=== PATIENT | male | born 1995 | race African-American/Black ===

== ENCOUNTER 2017-10-16 22:23 | Emergency (ER) | END 2017-10-17 03:18 | disposition home or self-care (01) ==

== ENCOUNTER 2017-10-17 23:23 | Emergency (ER) | END 2017-10-18 04:28 | disposition home or self-care (01) ==

== ENCOUNTER 2018-05-16 02:56 | Inpatient (IN) | END 2018-05-19 13:59 | disposition home or self-care (01) | DRG 812 ==

== ENCOUNTER 2018-06-30 05:28 | Emergency (ER) | END 2018-06-30 07:39 | disposition home or self-care (01) ==

== ENCOUNTER 2018-06-30 10:30 | Inpatient (IN) | payer OTHER ==
[~2018-06-30] VITALS: Ht 177.8 cm; Wt 68.5 kg
[~2018-06-30 10:30] MED LIST: DOCU-144 PO; FOLI-49 PO; HYDR-3601 PO; HYDR500C14 PO; OXYC-279 PO; Work Note
[2018-06-30] MEDS ORDERED: HYDROmorphONE 1 MG/ML SYG IV STA (11:16)
[2018-06-30] MEDS ORDERED: SOD CHLORIDE 0.9% 1,000 ML IV STA (11:16)
[2018-06-30] MEDS ORDERED: HYDR500C3 PO (11:51)
[2018-06-30] MEDS ORDERED: FOLI-49 PO (11:51)
--- NOTE | 2018-06-30 11:55 | ERD ---
ER Documentation Chief Complaint Chief Complaint pt bib self with c/o "sickle cell crisis" just discharged 4 hrs ago HPI 23-year-old male who was just seen earlier today for a sickle cell pain crisis presents to the emergency department soon after leaving with ongoing pain. His history has not changed at all from his initial evaluation. He reports no fevers. Reports diffuse pain across his body. He reports no specific chest pain or shortness of breath, no fevers or chills. No other symptoms. Despite using the Percocet as an outpatient, he continued to have pain return to the emergency department. ROS All systems reviewed and are negative except as per history of present illness. Medications Home Meds Reported Medications Hydroxyurea* (Hydroxyurea*) 500 Mg Capsule, 1500 MG PO BID, CAP 06/30/18 Folic Acid* (Folic Acid*) 1 Mg Tablet, 1 MG PO DAILY, TAB 06/30/18 Discontinued Scripts Oxycodone HCl/Acetaminophen (Percocet 5-325 mg Tablet) 1 Each Tablet, 1 EACH PO TID for pain, #10 TAB Prov:VILMA CURRY 06/30/18 [Work Note] No Conflict Check [facility] from[facility] is to certify that 05/16/2018 to 05/19/2018. The patient can return back to work on 05/22/2018 with no restrictions. Prov:CAROLINE AKHTAR NP 05/19/18 Docusate Sodium* (Colace*) 100 Mg Capsule, 100 MG PO BID, #20 CAP Prov:CAROLINE AKHTAR NP 05/19/18 Folic Acid* (Folic Acid*) 1 Mg Tablet, 1 MG PO DAILY, #30 TAB Prov:CAROLINE AKHTAR NP 05/19/18 Hydroxyurea* (Hydrea*) 500 Mg Capsule, 1500 MG PO DAILY, #30 CAP Patient already has supplies. Prov:CAROLINE AKHTAR NP 05/19/18 Hydrocodone Bit-Acetaminophen (Hydrocodone Bit-APAP) 5-325MG Tablet, 1 TAB PO Q6H PRN for MODERATE PAIN LEVEL 4-6, #20 TAB Prov:CAROLINE AKHTAR NP 05/19/18 Allergies Allergies: Coded Allergies: No Known Allergy (Unverified , 06/30/18) PMhx/Soc History of Surgery: No Anesthesia Reaction: No Hx Neurological Disorder: No Hx Cardiac Disorders: No Hx Miscellaneous Medical Probl: Yes (SICKLE CELL ANEMIA ) Hx Alcohol Use: No Hx Substance Use: No Hx Tobacco Use: Yes (CANNABIS) Smoking Status: Current every day smoker FmHx Noncontributory for chief complaint Physical Exam Vitals Vital Signs Date Temp Pulse Resp B/P (MAP) Pulse Ox O2 O2 Flow FiO2 Time Delivery Rate 06/30/18 98.9 75 18 125/74 99 10:32 (91) Physical Exam GENERAL: The patient is well developed and appropriate for usual state of health in no apparent distress HEENT: Pupils equal, round, and reactive to light. EOMI. There is no scleral icterus. NECK: C-spine is soft and supple, there is no meningismus. There is no cervical lymphadenopathy. LUNGS: Clear to auscultation bilaterally. There are no rales, wheezes or rhonchi. HEART: Regular rate and rhythm, no murmurs, clicks, rubs or gallops. ABDOMEN: Soft, non-tender, non-distended. There are bowel sounds in all four quadrants. No rebound or guarding. EXTREMITIES: There is no peripheral cyanosis or edema. No focal swelling or erythema. NEURO: The patient moves all four extremities with 5/5 strength. Cranial nerves II - XII are intact. Normal gait. Alert and oriented SKIN: There is no apparent rash or petechiae. HEME/LYMPHATIC: There is no evidence of excessive bruising or lymphedema. PSYCHIATRIC: The patient does not appear anxious or depressed. Results 24 hrs Current Medications Medications Dose Sig/Pablo Start Time Status Last (Trade) Ordered Route PRN Stop Time Admin Dose Reason Admin Sodium 1,000 ml @ Q1H STAT 06/30/18 06/30/18 Chloride 1,000 mls/hr IV 11:16 11:29 06/30/18 12:15 1 mg ONCE STAT 06/30/18 DC 06/30/18 Hydromorphone IV 11:16 11:28 HCl 06/30/18 (Dilaudid) 11:17 Procedures/MDM Patient was taken to a room, seen and examined. Pain medication and fluids was reinitiated. Medical decision makin23 year old male with existing sickle cell disease presents the emergency department in ongoing pain crisis. Patient has no in dications of sepsis or dehydration but does have ongoing pain that despite outpatient treatment and initial attempts for outpatient discharge earlier in the day have been unsuccessful. He will therefore require admission to the hospital for further pain control and fluids. Departure Diagnosis: Primary Impression: Sickle cell pain crisis Condition: Marianne CURRYVILMA Jun 30, 2018 11:55
[2018-06-30] MEDS ORDERED: HYDROmorphONE 2 MG/ML SYG IV STA (12:54)
[2018-06-30 13:50] VITALS: BP 133/71; PULSE 104; RESP 18
--- NOTE | 2018-06-30 14:00 | NUR ---
Admitted patient from ER, alert and oriented x 4, able to answer admission questions. Skin assessed with another RN, no skin issues noted, skin noted to be intact, no wounds noted. Safety precautions initiated. Informed of the hourly rounding and oriented to the use of call light and telephone. Will continue to monitor. Addendum: 06/30/18 at 1804 by SHERRY POSADAS RN Patient refused pictures to be taken on his buttocks and heels. Explained to the patient the importance and the reason of the pictures but still patient refused.
[2018-06-30 14:11] VITALS: Ht 177.8 cm; Wt 68.5 kg
[2018-06-30] MEDS ORDERED: KETOROLAC 30 MG INJ IV STA (14:25)
[2018-06-30] MEDS ORDERED: ONDANSETRON 4 MG INJ IV PRN (14:30)
[2018-06-30] MEDS ORDERED: NACL 0.9% 3 ML SYG IV SCH (14:30)
--- NOTE | 2018-06-30 14:37 | HP ---
Date/Time of Note Date/Time of Note DATE: 06/30/18 TIME: 14:26 Assessment/Plan VTE Prophylaxis Pharmacological prophylaxis: LMWH Lines/Catheters IV [facility]from [facility] Saline Lock Urinary Cath still in place: No Assessment/Plan Assessment/Plan 23 yo man with sickle cell disease presents with crisis. #Sickle cell crisis - Diffuse bone pain and leukocytosis, dehydration. - Likely precipitated by dehydration after heavy drinking followed by brief gastroenteritis. - Pain control: Patient prefers toradol. Will give dose now. - Also will do norco and IV dilaudid as needed. - IV fluids @125 - Complete workup with CXR DVT: lovenox GI: none HPI/ROS Admit Date/Time Admit Date/Time Jun 30, 2018 at 11:56 Hx of Present Illness Mr. Dalton is a pleasant 23 yo man with sickle cell disease who presents with nonspecific whole body pain. He was in his usual state of health until last Tuesday when he was out with friends and drank heavily. The next morning he had a headache, nausea, vomiting, and watery diarrhea. For the next two days he continued having poor PO intake and diarrhea. By the diarrhea had resolved and he was able to tolerate regular diet. night he suddenly developed aching bone pain spreading around his body, mostly R knee, R shoulder and arm, chest and back; typical of past sickle cell crises. He took [place] as prescribed with no relief. So he presented to the ED early Tuesday morning. Last hospitalization was 05/16-05/19 also for sickle cell crisis. In the ED he was afebrile, vital signs stable. Hgb 8.2 which is baseline for him. WBC 18.0. ROS Denies fatigue, fever, chills, night sweats, headache, vision changes, sore throat, cough, dyspnea, chest pressure or palpitations, recent diarrhea or constipation, dysuria, hematuria, urinary frequency. PMH/Family/Social Past Medical History Sickle cell disease Coded Allergies: No Known Allergy (Unverified , 06/30/18) Past Surgical History Denies Family History Significant Family History: no pertinent family hx Social History Alcohol Use: occasionally Smoking Status: Never smoker Drug Use: marijuana (Last used yesterday) Exam/Review of Systems Vital Signs Vitals Vital Signs Date Temp Pulse Resp B/P (MAP) Pulse Ox O2 O2 Flow FiO2 Time Delivery Rate 06/30/18 88 18 109/59 100 Nasal 2.0 13:05 (76) Cannula 06/30/18 98.9 10:32 Exam Exam Gen: Fatigued appearing well developed young man in no acute distress. Eyes: PERRL, no icterus HEENT: Very dry mucous membranes. Clear oropharynx Neck: Nontender no lymphadenopathy Card: Regular rate and rhythm, no murmurs Chest: Tenderness to palpation anterior chest. Pulm: Clear to auscultation bilaterally. Abd: Soft, nontender, nondistended. Ext: Good peripheral pulses. Nontender R shoulder, elbow, knee with full ROM. KEVIN NOLASCO MD Jun 30, 2018 14:37
[2018-06-30] MEDS: SOD CHLORIDE 0.45% 1,000 ML IV SCH ×2 (14:52→23:28)
[2018-06-30] MEDS: SENNA TAB PO SCH ×2 (15:05→20:44)
[2018-06-30] MEDS: HYDROmorphONE 1 MG/ML SYG IV PRN ×2 (16:41→20:46)
--- NOTE | 2018-06-30 17:38 | NUR ---
NURSE NOTES: Patient alert and oriented x 4, able to make needs known remained stable throughout the shift with no acute changes noted. no SOB or distress. IV patent and intact. assessed and reassessed for pain. medicated with pain medications as ordered. Safety precautions observed, hourly rounding done, bed alarm and bed brakes on for safety. Call light and telephone within reach at all times. Will continue to monitor. Will endorse accordingly to next shift for continuity of care
[2018-06-30] MEDS: HYDROCODONE/APAP (5/325) TAB PO PRN (18:47)
[2018-06-30 20:16] VITALS: BP 106/59; PULSE 89; RESP 18
[2018-06-30] MEDS: HYDROXYUREA 500 MG CAP PO SCH (22:30)
--- NOTE | 2018-06-30 22:30 | NUR ---
Verified dose of Hydrea with RN Jerica.Confirmed with patient that he's taking Hydrea at home.Pt is aware of possible side effects of medication.No questions about the medication at this time.Reviewed with RN precautions while patient is on chemo.
--- NOTE | 2018-06-30 23:30 | NUR ---
pt noted moaning in bed,complaining of severe pain, aching, gen body pain. pain medications dilaudid and norco due in another hour. notified Dr Winter w/ order to give dilaudid 0.5 mg iv once . noted and carried out
[2018-06-30] MEDS ORDERED: HYDROmorphONE 0.5 MG/0.5 ML SYG IV ONE (23:48)
[2018-07-01 02:00] VITALS: BP 110/57; PULSE 102; RESP 18
[2018-07-01] MEDS: HYDROmorphONE 1 MG/ML SYG IV PRN ×2 (02:16→06:12)
[2018-07-01] MEDS: HYDROCODONE/APAP (5/325) TAB PO PRN (04:57)
--- NOTE | 2018-07-01 06:47 | NUR ---
received critical result hgb 6.7 , notified Dr Winter w/ order to give 1'u' PRBC and to repeat cbc after 1 hour of giving 1'u' PRBC. education material regarding blood transfusion given to pt. consent to blood transfusion signed by pt. will endorse to dayshift nurse
[2018-07-01 07:30] VITALS: BP 104/57; PULSE 94; RESP 16
[2018-07-01] MEDS: SOD CHLORIDE 0.45% 1,000 ML IV SCH ×3 (07:48→19:40)
[2018-07-01] MEDS ORDERED: SOD CHLORIDE 0.9% 250 ML IV* ONE (08:34)
[2018-07-01] MEDS: ENOXAPARIN 40 MG/0.4 ML SYG SC SCH (09:00)
[2018-07-01] MEDS: SENNA TAB PO SCH ×2 (09:26→20:27)
[2018-07-01] MEDS: FOLIC ACID 1 MG TAB PO SCH (09:26)
[2018-07-01] MEDS: HYDROXYUREA 500 MG CAP PO SCH ×2 (09:27→20:29)
--- NOTE | 2018-07-01 09:30 | NUR ---
patient's oxigen saturation was low with room air.87%.oxigen 2 l via nasal canula 94%.notified and new orders received for oxigen orders via nasal canula.
[2018-07-01] MEDS: HYDROmorphONE 2 MG/ML SYG IV PRN ×4 (09:33→22:12)
[2018-07-01] MEDS: DIPHENHYDRAMINE 25 MG CAP PO PRN ×2 (10:29→17:53)
--- NOTE | 2018-07-01 10:30 | NUR ---
patient c/o itching all over the body .notified and new orders received for benadryl and will carry out the orders
--- NOTE | 2018-07-01 10:53 | NUR ---
waiting for blood bank to re draw the blood due to different v number.called admitting and blood bank regarding this.charge nurse also aware.will transfuse as soon as blood ready.
--- NOTE | 2018-07-01 11:57 | NUR ---
after the benadry patient said ''no more itching .feel better''.md increase the pain meds also gave the dose as ordered.dialudid iv 2 mg .
--- NOTE | 2018-07-01 12:46 | NUR ---
called blood bank and talk with angeliac regarding the packed cells.she said;''it is not ready ,he has antibody,take time to process,will call you when blood is ready''
[2018-07-01 14:01] VITALS: BP 107/67; PULSE 88; RESP 16
[2018-07-01] MEDS: HYDROmorphONE 4 MG TAB PO PRN ×2 (15:25→19:40)
--- NOTE | 2018-07-01 15:44 | NUR ---
called blood bank and talk with Natasha regarding the blood.she said''it is not ready yet,its take little more time''so unable to start the first unit still.waiting for blood bank
--- NOTE | 2018-07-01 16:15 | PN ---
Date/Time of Note Date/Time of Note DATE: 07/01/18 TIME: 16:09 Assessment/Plan VTE Prophylaxis Risk score (from Nsg)>0 risk: 1 SCD applied (from Ns): No SCD contraindicated: other (no) Pharmacological prophylaxis: LMWH Lines/Catheters IV Catheter Type (from Nrs): Peripheral IV Urinary Cath still in place: No Assessment/Plan Assessment/Plan 23 yo man with sickle cell disease presents with crisis. #Sickle cell crisis - Diffuse bone pain and leukocytosis, dehydration. - Likely precipitated by dehydration after heavy drinking followed by brief gastroenteritis. - Pain control: PO and IV dilaudid as needed. Benadryl for itching. - IV fluids @125 - CXR with scant infiltrates which may represent atelectasis. However he also had hypoxia also requiring nasal cannula. Remaining vigilant for acute chest syndrome. - Also will get R knee XR, has persistent pain and unable to bear weight on it. #Anemia - Will transfuse 2 units pRBCs. DVT: lovenox GI: none Result Diagram: 07/01/18 0530 07/01/18 0530 Subjective 24 Hr Interval Summary Free Text/Dictation No acute overnight events. Continues to have migrating bony pain. Today feels R knee pain, mild L neck anterior pain. Slightly hypoxic this morning, required nasal cannula. Unable to bear weight on R knee. Also requires blood transfusion. Discussed with patient and he is agreeable. Crossmatch is taking awhile because he has antibodies. Exam/Review of Systems Vital Signs Vitals Vital Signs Date Temp Pulse Resp B/P (MAP) Pulse Ox O2 O2 Flow FiO2 Time Delivery Rate 07/01/18 98.3 88 16 107/67 95 Room Air 14:01 (80) 06/30/18 2.0 13:05 Intake and Output 06/30/18 06/30/18 07/01/18 1515:00 23:00 07:00 IntakeIntake Total 120 ml 615 ml 1805 ml OutputOutput Total 350 ml 1000 ml 700 ml BalanceBalance -230 ml -385 ml 1105 ml Exam Gen: Fatigued appearing well developed young man in no acute distress. Eyes: PERRL, no icterus HEENT: Very dry mucous membranes. Clear oropharynx Neck: Nontender no lymphadenopathy Card: Regular rate and rhythm, no murmurs Chest: Tenderness to palpation anterior chest. Pulm: Clear to auscultation bilaterally. Abd: Soft, nontender, nondistended. Ext: Good peripheral pulses. Nontender R shoulder, elbow, knee with full ROM. Medications Medications Current Medications Sodium Chloride 1,000 ml @ 125 mls/hr Q8H IV Last administered on 07/01/18 07:48; Admin Dose 125 MLS/HR; Start 06/30/18 at 14:21 IV Flush (NS 3 ml) 3 ml PER PROTOCOL IV ; Start 06/30/18 at 14:30 Ondansetron HCl (Zofran Inj) 4 mg Q6H PRN IV NAUSEA AND/OR VOMITING; Start 06/30/18 at 14:30 Enoxaparin Sodium (Lovenox) 40 mg DAILY SC ; Start 07/01/18 at 09:00 Senna (Senokot) 1 tab BID PO Last administered on 07/01/18 09:26; Admin Dose 1 TAB; Start 06/30/18 at 14:30 Folic Acid (Folic Acid) 1 mg DAILY PO Last administered on 07/01/18 09:26; Admin Dose 1 MG; Start 07/01/18 at 09:00 Hydroxyurea (Hydrea) 1,500 mg BID PO Last administered on 07/01/18 09:27; Admin Dose 1,500 MG; Start 06/30/18 at 21:00 Hydromorphone HCl (Dilaudid) 2 mg Q2H PRN IV SEVERE PAIN LEVEL 7-10 Last administered on 07/01/18 13:23; Admin Dose 2 MG; Start 07/01/18 at 10:30 Hydromorphone HCl (Dilaudid) 4 mg Q4H PRN PO MODERATE PAIN LEVEL 4-6 Last administered on 07/01/18 15:25; Admin Dose 4 MG; Start 07/01/18 at 10:00 Diphenhydramine HCl (Benadryl) 25 mg Q6H PRN PO ITCHING Last administered on 07/01/18 10:29; Admin Dose 25 MG; Start 07/01/18 at 10:30 KEVIN NOLASCO MD Jul 01, 2018 16:15
--- NOTE | 2018-07-01 16:53 | NUR ---
started the first units of prbc at this time.patient's temperature 99.0 F at this time.notified and he said''it is ok to start the blood with this temperature ''no new orders received at this time.
--- NOTE | 2018-07-01 18:40 | NUR ---
all needs met.no acute events.gave pain medication as reqested.gave benadryl also as reqested.call light within reach.bed alarm on.he is still getting blood transfusion .will endorese to night nurse to give the 2 nd unit.
[2018-07-01 20:00] VITALS: BP 121/69; PULSE 91; RESP 18
--- NOTE | 2018-07-01 20:38 | NUR ---
Blood transfusion finished. No blood reaction noted. Pt denies chills or discomfort.
--- NOTE | 2018-07-01 22:02 | NUR ---
Pts current vitals: BP:114/64 Temp:100.0 F, O2 sat: 94%, HR: 99, RR: 18. Pt refusing cooling measures. Spoke with Dr. Winter regarding vitals, Doctor ordered a stat CBC and tylenol 650mg PO Q6 PRN. Will notify of CBC results Addendum: 07/01/18 at 2206 by ALCIDES SHEN RN Second unit of PRBCs has not been given d/t elevated temp. Dr. Winter ordered to be called with CBC results. Patient aware.
[2018-07-01] MEDS ORDERED: ACETAMINOPHEN 325 MG TAB PO PRN (22:30)
--- NOTE | 2018-07-01 23:56 | NUR ---
Patient's Hgb 8.0. Patient states his Hgb baseline is 8.0-10.0. Dr. Winter made aware. Per Dr. Winter made give second unit of PRBC. Temp. after Tylenol administration 99.0
[2018-07-02] VITALS (9 sets, daily range): BP systolic 101–129; BP diastolic 58–77; PULSE 76–103; RESP 16–18
[2018-07-02] MEDS: HYDROmorphONE 2 MG/ML SYG IV PRN ×6 (03:04→23:39)
[2018-07-02] MEDS: HYDROmorphONE 4 MG TAB PO PRN ×5 (05:16→22:07)
--- NOTE | 2018-07-02 05:30 | NUR ---
End of Shift RN Note: Second unit of PRBC finished at 0430. Vital signs one hour after transfusion remain at baseline with no signs of blood transfusion reaction. Pt states he is comfortable and shows no signs of acute distress. Pt administered pain medication multiple times through the night with pt verbalizing adequate relief. Spoke with key punch operator regarding CBC blood draw time, key punch operator agreed to have blood drawn around 0530 am. Hourly rounding provided. Will continue to monitor pt until then end of shift.
[2018-07-02] MEDS: SOD CHLORIDE 0.45% 1,000 ML IV SCH ×3 (05:56→22:54)
[2018-07-02] MEDS: SENNA TAB PO SCH ×2 (08:52→21:04)
[2018-07-02] MEDS: HYDROXYUREA 500 MG CAP PO SCH ×2 (08:52→21:10)
[2018-07-02] MEDS: FOLIC ACID 1 MG TAB PO SCH (08:52)
[2018-07-02] MEDS: ENOXAPARIN 40 MG/0.4 ML SYG SC SCH ×2 (08:56→13:56)
--- NOTE | 2018-07-02 10:00 | NUR ---
patient refused lovenox shot as ordered.explained to him how important to have this meds.he is worry about the side effects.notified regarding this and he also spoke with the patient regarding this .
--- NOTE | 2018-07-02 15:50 | PN ---
Date/Time of Note Date/Time of Note DATE: 07/02/18 TIME: 15:48 Assessment/Plan VTE Prophylaxis Risk score (from Ns)>0 risk: 0 SCD applied (from Ns): No SCD contraindicated: other (no) Pharmacological prophylaxis: LMWH Lines/Catheters IV Catheter Type (from Nrs): Peripheral IV Urinary Cath still in place: No Assessment/Plan Assessment/Plan 23 yo man with sickle cell disease presents with crisis. #Sickle cell crisis - Diffuse bone pain and leukocytosis, dehydration. - Likely precipitated by dehydration after heavy drinking followed by brief gastroenteritis. - Pain control: PO and IV dilaudid as needed. Benadryl for itching. - IV fluids @125 - CXR with scant infiltrates which may represent atelectasis. However he also had hypoxia also requiring nasal cannula. Remaining vigilant for acute chest syndrome. #Anemia - Transfused 2 units pRBCs. DVT: lovenox GI: none Result Diagram: 07/02/18 0712 07/02/18 0712 Results 24hrs Laboratory Tests Test 07/01/18 22:28 07/02/18 06:44 07/02/18 07:12 07/02/18 10:28 White Blood 17.8 H 15.2 H Count Red Blood Count 2.48 L 2.80 L Hemoglobin 8.0 L 8.8 L Hematocrit 22.3 #L 24.9 L Mean 89.9 88.9 Corpuscular Volume Mean 32.3 31.4 Corpuscular Hemoglobin Mean 35.9 35.3 Corpuscular Hemoglobin Conc ent Red Cell 20.1 H 19.9 H Distribution Width Platelet Count 545 H 514 H Mean Platelet 10.6 H 10.5 H Volume Immature 2.000 H 1.700 H Granulocytes % Neutrophils % 69.0 Segmented 65 Neutrophils % (Manual) Band 6 H Neutrophils % (Manual) Lymphocytes % 21.0 Lymphocytes % 21 (Manual) Reactive 2 H Lymphocytes % (Manual) Monocytes % 7.1 Monocytes % 6 (Manual) Eosinophils % 0.7 Basophils % 0.5 Nucleated Red 21 H 13.5 H Blood Cells % Immature 0.360 H 0.260 H Granulocytes # Neutrophils # 10.5 H Neutrophils # 11.7 H (Manual) Band 1.0 H Neutrophils # Lymphocytes 3.7 H (Manual) Lymphocytes # 3.2 H Reactive 0.3 H Lymphocytes # Monocytes # 1.1 H Monocytes # 1.0 H (Manual) Eosinophils # 0.1 Basophils # 0.1 Nucleated Red 2.1 H Blood Cells # Platelet INCREASED Estimate Giant Platelets 1 H Polychromasia 3+ Poikilocytosis 2+ Anisocytosis 2+ Microcytosis 1+ Macrocytosis 2+ Sickle Cells 2+ Lab Scanned BLOOD TRANSFUSI REFERENCE LAB Report ON Sodium Level 137 Potassium Level 3.6 Chloride Level 102 Carbon Dioxide 31 Level Anion Gap 4 L Blood Urea 2 L Nitrogen Creatinine 0.39 L Est Glomerular > 60 Filtrat Rate mL/min Glucose Level 92 Calcium Level 9.2 Phosphorus 3.9 Level Magnesium Level 1.7 Subjective 24 Hr Interval Summary Free Text/Dictation No acute overnight events. Patient reluctant to take lovenox but agreeable after I spoke to him. Able to stand briefly yesterday; still unable to walk due to knee pain. Exam/Review of Systems Vital Signs Vitals Vital Signs Date Temp Pulse Resp B/P (MAP) Pulse Ox O2 O2 Flow FiO2 Time Delivery Rate 07/02/18 98.7 80 17 129/74 96 Room Air 15:07 (92) 07/02/18 2.0 14:57 Intake and Output 07/01/18 07/01/18 07/02/18 1515:00 23:00 07:00 IntakeIntake Total 870 ml 1450 ml 875 ml OutputOutput Total 400 ml 1700 ml 1300 ml BalanceBalance 470 ml -250 ml -425 ml Exam Gen: Fatigued appearing well developed young man in no acute distress. Eyes: PERRL, no icterus HEENT: Moist mucous membranes. Clear oropharynx Neck: Nontender no lymphadenopathy Card: Regular rate and rhythm, no murmurs Chest: Chest nontender Pulm: Clear to auscultation bilaterally. Abd: Soft, nontender, nondistended. Ext: Good peripheral pulses. Nontender R shoulder, elbow, knee with full ROM. Medications Medications Current Medications Sodium Chloride 1,000 ml @ 125 mls/hr Q8H IV Last administered on 07/02/18at 14:00; Admin Dose 125 MLS/HR; Start 06/30/18 at 14:21 IV Flush (NS 3 ml) 3 ml PER PROTOCOL IV ; Start 06/30/18 at 14:30 Ondansetron HCl (Zofran Inj) 4 mg Q6H PRN IV NAUSEA AND/OR VOMITING; Start 06/30/18 at 14:30 Enoxaparin Sodium (Lovenox) 40 mg DAILY SC Last administered on 07/02/18 13:56; Admin Dose 40 MG; Start 07/01/18 at 09:00 Senna (Senokot) 1 tab BID PO Last administered on 07/02/18 08:52; Admin Dose 1 TAB; Start 06/30/18 at 14:30 Folic Acid (Folic Acid) 1 mg DAILY PO Last administered on 07/02/18 08:52; Admin Dose 1 MG; Start 07/01/18 at 09:00 Hydroxyurea (Hydrea) 1,500 mg BID PO Last administered on 07/02/18 08:52; Admin Dose 1,500 MG; Start 06/30/18 at 21:00 Hydromorphone HCl (Dilaudid) 2 mg Q2H PRN IV SEVERE PAIN LEVEL 7-10 Last administered on 07/02/18 15:36; Admin Dose 2 MG; Start 07/01/18 at 10:30 Hydromorphone HCl (Dilaudid) 4 mg Q4H PRN PO MODERATE PAIN LEVEL 4-6 Last administered on 07/02/18 13:53; Admin Dose 4 MG; Start 07/01/18 at 10:00 Diphenhydramine HCl (Benadryl) 25 mg Q6H PRN PO ITCHING Last administered on 07/01/18 17:53; Admin Dose 25 MG; Start 07/01/18 at 10:30 Acetaminophen (Tylenol Tab) 650 mg Q6H PRN PO MILD PAIN(1-3)OR ELEVATED TEMP Last administered on 07/01/18 22:13; Admin Dose 650 MG; Start 07/01/18 at 22:30 KEVIN NOLASCO MD Jul 02, 2018 15:50
--- NOTE | 2018-07-02 18:45 | NUR ---
all needs met.no acute events.gave pain medication and benadryl as reqested.call light within reach.bed alarm on.he is resting comfortably in bed.
[2018-07-02] MEDS: DIPHENHYDRAMINE 25 MG CAP PO PRN (19:11)
[2018-07-03 01:39] VITALS: BP 115/70; PULSE 88; RESP 18
[2018-07-03] MEDS: HYDROmorphONE 4 MG TAB PO PRN ×5 (02:24→22:49)
[2018-07-03] MEDS: HYDROmorphONE 2 MG/ML SYG IV PRN ×4 (03:50→12:23)
[2018-07-03] MEDS: DIPHENHYDRAMINE 25 MG CAP PO PRN ×3 (05:29→23:59)
[2018-07-03] MEDS: SOD CHLORIDE 0.45% 1,000 ML IV SCH ×3 (06:21→16:00)
--- NOTE | 2018-07-03 06:44 | NUR ---
End of shift Report: Awake on bed watching TV. NO sob. No resp distress. Saturating at 96% RA. Frequently asked for pain med Dilaudid IV and PO given as ordered, well-jerson and effective. Also used heating pad fro right shoulder pain. No acute evens overnight. Needs attended and anticipated. Call light within reach. Will continue to monitor pt. Will endorse accordingly.
[2018-07-03 08:00] VITALS: BP 121/77; PULSE 87; RESP 18
[2018-07-03] MEDS: SENNA TAB PO SCH ×2 (08:31→21:04)
[2018-07-03] MEDS: FOLIC ACID 1 MG TAB PO SCH (08:31)
[2018-07-03] MEDS: ENOXAPARIN 40 MG/0.4 ML SYG SC SCH (08:33)
[2018-07-03] MEDS: HYDROXYUREA 500 MG CAP PO SCH ×2 (08:33→21:04)
[2018-07-03 14:00] VITALS: BP 126/74; PULSE 76; RESP 18
--- NOTE | 2018-07-03 15:31 | PN ---
Date/Time of Note Date/Time of Note DATE: 07/03/18 TIME: 15:28 Assessment/Plan VTE Prophylaxis Risk score (from Nsg)>0 risk: 0 SCD applied (from Ns): No SCD contraindicated: other Pharmacological prophylaxis: LMWH Lines/Catheters IV Catheter Type (from Nrsg): Peripheral IV Urinary Cath still in place: No Assessment/Plan Assessment/Plan S: O: VS - see below PE: Gen: Lying in bed, young man in no acute distress presently Eyes: PERRL, no icterus HEENT: Moist mucous membranes. Clear oropharynx Neck: Nontender no lymphadenopathy Card: Regular rate and rhythm, no murmurs Chest: Chest nontender Pulm: Clear to auscultation bilaterally. Abd: Soft, nontender, nondistended. Ext: Good peripheral pulses. Nontender R shoulder, elbow, knee with full ROM, no lower extremity edema bilaterally Assessment/Plan: 23 yo man with sickle cell disease presents with crisis. #Sickle cell crisis-slowly improving, presented initially with diffuse bone pain and leukocytosis, dehydration.- Likely precipitated by dehydration after heavy drinking followed by brief gastroenteritis. -Continue pain control: PO and IV dilaudid as needed (will cut back on the frequency). Benadryl for itching. - IV fluids @125 - CXR with scant infiltrates which may represent atelectasis. However he also had hypoxia also requiring nasal cannula. Remaining vigilant for acute chest syndrome. #Anemia -patient presented with hemoglobin of 6.7, received blood transfusion earlier this admission, now hemoglobin stable -Monitor for now DVT: lovenox GI: none Result Diagram: 07/03/18 0508 07/03/18 0508 Results 24hrs Laboratory Tests Test 07/03/18 05:08 White Blood Count 17.0 H Red Blood Count 2.63 L Hemoglobin 8.3 L Hematocrit 23.5 L Mean Corpuscular Volume 89.4 Mean Corpuscular Hemoglobin 31.6 Mean Corpuscular Hemoglobin Concent 35.3 Red Cell Distribution Width 20.2 H Platelet Count 573 H Mean Platelet Volume 10.4 Immature Granulocytes % 1.600 H Neutrophils % 66.8 Segmented Neutrophils % (Manual) 54 Band Neutrophils % (Manual) 7 H Lymphocytes % 20.2 Lymphocytes % (Manual) 26 Reactive Lymphocytes % (Manual) 6 H Monocytes % 10.3 Monocytes % (Manual) 6 Eosinophils % 0.7 Eosinophils % (Manual) 1 Basophils % 0.4 Nucleated Red Blood Cells % 29 H Immature Granulocytes # 0.270 H Neutrophils # 11.4 H Neutrophils # (Manual) 9.4 H Band Neutrophils # 1.1 H Lymphocytes (Manual) 4.4 H Lymphocytes # 3.4 H Reactive Lymphocytes # 1.0 H Monocytes # 1.8 H Monocytes # (Manual) 1.0 H Eosinophils # 0.1 Basophils # 0.1 Nucleated Red Blood Cells # 1.9 H Platelet Estimate INCREASED Giant Platelets 6 H Polychromasia 1+ Poikilocytosis 1+ Anisocytosis 2+ Macrocytosis 2+ Sickle Cells 2+ Sodium Level 137 Potassium Level 3.7 Chloride Level 99 Carbon Dioxide Level 32 H Anion Gap 6 Blood Urea Nitrogen 5 L Creatinine 0.46 L Est Glomerular Filtrat Rate mL/min > 60 Glucose Level 102 Calcium Level 9.2 Exam/Review of Systems Vital Signs Vitals Vital Signs Date Temp Pulse Resp B/P (MAP) Pulse Ox O2 O2 Flow FiO2 Time Delivery Rate 07/03/18 98.6 76 18 126/74 96 14:00 (91) 07/03/18 2.0 06:02 07/02/18 Room Air 15:07 Intake and Output 07/02/18 07/02/18 07/03/18 1515:00 23:00 07:00 IntakeIntake Total 1000 ml 2720 ml 1550 ml OutputOutput Total 2300 ml BalanceBalance 1000 ml 2720 ml -750 ml Medications Medications Current Medications Sodium Chloride 1,000 ml @ 125 mls/hr Q8H IV Last administered on 07/03/18at 07:28; Admin Dose 125 MLS/HR; Start 06/30/18 at 14:21 IV Flush (NS 3 ml) 3 ml PER PROTOCOL IV ; Start 06/30/18 at 14:30 Ondansetron HCl (Zofran Inj) 4 mg Q6H PRN IV NAUSEA AND/OR VOMITING; Start 06/30/18 at 14:30 Enoxaparin Sodium (Lovenox) 40 mg DAILY SC Last administered on 07/03/18at 08:33; Admin Dose 40 MG; Start 07/01/18 at 09:00 Senna (Senokot) 1 tab BID PO Last administered on 07/03/18at 08:31; Admin Dose 1 TAB; Start 06/30/18 at 14:30 Folic Acid (Folic Acid) 1 mg DAILY PO Last administered on 07/03/18 08:31; Admin Dose 1 MG; Start 07/01/18 at 09:00 Hydroxyurea (Hydrea) 1,500 mg BID PO Last administered on 07/03/18 08:33; Admin Dose 1,500 MG; Start 06/30/18 at 21:00 Hydromorphone HCl (Dilaudid) 2 mg Q2H PRN IV SEVERE PAIN LEVEL 7-10 Last administered on 07/03/18at 12:23; Admin Dose 2 MG; Start 07/01/18 at 10:30 Hydromorphone HCl (Dilaudid) 4 mg Q4H PRN PO MODERATE PAIN LEVEL 4-6 Last administered on 07/03/18at 14:46; Admin Dose 4 MG; Start 07/01/18 at 10:00 Diphenhydramine HCl (Benadryl) 25 mg Q6H PRN PO ITCHING Last administered on 07/03/18at 05:29; Admin Dose 25 MG; Start 07/01/18 at 10:30 Acetaminophen (Tylenol Tab) 650 mg Q6H PRN PO MILD PAIN(1-3)OR ELEVATED TEMP Last administered on 07/01/18at 22:13; Admin Dose 650 MG; Start 07/01/18 at 22:30 LACEY FELICIANO Jul 03, 2018 15:31
[2018-07-03] MEDS: HYDROmorphONE 1 MG/ML SYG IV PRN ×2 (16:36→21:04)
--- NOTE | 2018-07-03 18:49 | NUR ---
DX for sickle crises anemia, episodes of generalized body pain discomfort 6-7/10 pain scale given 1mg dilaudid iv push w/ break through pain dilaudid 4 mg po after 20-30 minutes pain scale 2-10. PPE used d/t chemo oral medications, good appetite noted fluids encouraged and VS within range
[2018-07-03 20:00] VITALS: BP 129/69; PULSE 112; RESP 18
[2018-07-03 21:00] VITALS: BP 125/65; PULSE 98; RESP 19
[2018-07-04] MEDS: HYDROmorphONE 1 MG/ML SYG IV PRN ×6 (01:18→21:39)
[2018-07-04] MEDS: SOD CHLORIDE 0.45% 1,000 ML IV SCH ×3 (01:21→21:52)
[2018-07-04 02:00] VITALS: BP 111/63; PULSE 81; RESP 18
[2018-07-04] MEDS: HYDROmorphONE 4 MG TAB PO PRN ×6 (02:57→23:47)
--- NOTE | 2018-07-04 03:38 | NUR ---
Pt been taking Dilaudid 4mg po and Dilaudid 1mg IV Q 4H, per pt pain med does not help him much and requesting to give other pain med or could change current pain med order. Dr. Mabry made aware and per MD no change for pain med for now and need to talk to his primary physician in am or if possible with Dr. Navarrete pain specialist . Will endorse to am shift nurse
--- NOTE | 2018-07-04 06:19 | NUR ---
End of shift Report: Awake watching TV. No sob. No resp distress. Medicated for pain, Dilaudid IV and PO given well-jerson and partially effective per pt. MD made aware. Needs attended and anticipated. No acute events overnight. Hourly rounding. Cont with current plan of care. Call light within reach. Will continue to monitor. Call light within reach.
[2018-07-04] MEDS: HYDROXYUREA 500 MG CAP PO SCH ×2 (08:01→21:48)
[2018-07-04] MEDS: FOLIC ACID 1 MG TAB PO SCH (08:01)
[2018-07-04] MEDS: SENNA TAB PO SCH ×2 (08:01→21:46)
[2018-07-04] MEDS: ENOXAPARIN 40 MG/0.4 ML SYG SC SCH (08:01)
[2018-07-04 08:26] VITALS: BP 109/65; PULSE 98; RESP 18
[2018-07-04] MEDS: DIPHENHYDRAMINE 25 MG CAP PO PRN ×2 (12:52→23:25)
--- NOTE | 2018-07-04 13:59 | NUR ---
NURSE NOTE: Dr. Coburn aware regarding H&H- 7.9/22.0. Received orders to transfuse 1 unit of PRBC today. Pt made aware and verbalized understanding.
[2018-07-04 15:01] VITALS: BP 121/76; PULSE 98; RESP 18
--- NOTE | 2018-07-04 15:09 | PN ---
Date/Time of Note Date/Time of Note DATE: 07/04/18 TIME: 15:07 Assessment/Plan VTE Prophylaxis Risk score (from Nsg)>0 risk: 0 SCD applied (from Ns): No SCD contraindicated: other Pharmacological prophylaxis: LMWH Lines/Catheters IV Catheter Type (from Nrsg): Peripheral IV Urinary Cath still in place: No Assessment/Plan Hospital Course S: No acute events overnight. Waiting to be seen by pain management team. O: VS - see below PE: Gen: Lying in bed, young man in no acute distress presently Eyes: PERRL, no icterus HEENT: Moist mucous membranes. Clear oropharynx Neck: Nontender no lymphadenopathy Card: Regular rate and rhythm, no murmurs Chest: Chest nontender Pulm: Clear to auscultation bilaterally. Abd: Soft, nontender, nondistended. Ext: Good peripheral pulses. Nontender R shoulder, elbow, knee with full ROM, no lower extremity edema bilaterally Assessment/Plan: 23 yo man with sickle cell disease presents with crisis. #Sickle cell crisis-slowly improving, presented initially with diffuse bone pain and leukocytosis, dehydration.- Likely precipitated by dehydration after heavy drinking followed by brief gastroenteritis. -Continue pain control: PO and IV dilaudid as needed, Benadryl for itching. - IV fluids - CXR with scant infiltrates which may represent atelectasis. However he also had hypoxia also requiring nasal cannula. Remaining vigilant for acute chest syndrome. -Because patient still complaining of some pain symptoms will get pain management consult as well #Anemia -patient presented with hemoglobin of 6.7, received blood transfusion earlier this admission, hemoglobin was stable for a couple of days, but today a little bit lower at 7.9 -Monitor for now, we will go ahead and order for 1 more unit PRBC transfusion today Result Diagram: 07/04/18 0624 07/04/18 0624 Results 24hrs Laboratory Tests Test 07/04/18 06:24 White Blood Count 15.9 H Red Blood Count 2.47 L Hemoglobin 7.9 L Hematocrit 22.0 L Mean Corpuscular Volume 89.1 Mean Corpuscular Hemoglobin 32.0 Mean Corpuscular Hemoglobin Concent 35.9 Red Cell Distribution Width 19.7 H Platelet Count 631 H Mean Platelet Volume 10.7 H Immature Granulocytes % 1.100 H Neutrophils % 69.0 Lymphocytes % 18.8 Monocytes % 9.7 Eosinophils % 1.0 Basophils % 0.4 Nucleated Red Blood Cells % 9.5 H Immature Granulocytes # 0.180 H Neutrophils # 11.0 H Lymphocytes # 3.0 H Monocytes # 1.5 H Eosinophils # 0.2 Basophils # 0.1 Nucleated Red Blood Cells # 1.5 H Sodium Level 136 Potassium Level 3.8 Chloride Level 100 Carbon Dioxide Level 28 Anion Gap 8 Blood Urea Nitrogen 6 L Creatinine 0.46 L Est Glomerular Filtrat Rate mL/min > 60 Glucose Level 84 Calcium Level 9.1 Phosphorus Level 3.7 Magnesium Level 1.7 Exam/Review of Systems Vital Signs Vitals Vital Signs Date Temp Pulse Resp B/P (MAP) Pulse Ox O2 O2 Flow FiO2 Time Delivery Rate 07/04/18 98.7 98 18 121/76 93 15:01 (91) 07/03/18 2.0 23:46 07/02/18 Room Air 15:07 Intake and Output 07/03/18 07/03/18 07/04/18 1515:00 23:00 07:00 IntakeIntake Total 600 ml 1750 ml 1415 ml OutputOutput Total 940 ml 750 ml 1200 ml BalanceBalance -340 ml 1000 ml 215 ml Medications Medications Current Medications Sodium Chloride 1,000 ml @ 125 mls/hr Q8H IV Last administered on 07/04/18 09:34; Admin Dose 125 MLS/HR; Start 06/30/18 at 14:21 IV Flush (NS 3 ml) 3 ml PER PROTOCOL IV ; Start 06/30/18 at 14:30 Ondansetron HCl (Zofran Inj) 4 mg Q6H PRN IV NAUSEA AND/OR VOMITING; Start 06/30/18 at 14:30 Enoxaparin Sodium (Lovenox) 40 mg DAILY SC Last administered on 07/04/18 08:01; Admin Dose 40 MG; Start 07/01/18 at 09:00 Senna (Senokot) 1 tab BID PO Last administered on 07/04/18 08:01; Admin Dose 1 TAB; Start 06/30/18 at 14:30 Folic Acid (Folic Acid) 1 mg DAILY PO Last administered on 07/04/18 08:01; Admin Dose 1 MG; Start 07/01/18 at 09:00 Hydroxyurea (Hydrea) 1,500 mg BID PO Last administered on 07/04/18 08:01; Admin Dose 1,500 MG; Start 06/30/18 at 21:00 Hydromorphone HCl (Dilaudid) 4 mg Q4H PRN PO MODERATE PAIN LEVEL 4-6 Last administered on 07/04/18 11:51; Admin Dose 4 MG; Start 07/01/18 at 10:00 Diphenhydramine HCl (Benadryl) 25 mg Q6H PRN PO ITCHING Last administered on 07/04/18 12:52; Admin Dose 25 MG; Start 07/01/18 at 10:30 Acetaminophen (Tylenol Tab) 650 mg Q6H PRN PO MILD PAIN(1-3)OR ELEVATED TEMP Last administered on 07/01/18at 22:13; Admin Dose 650 MG; Start 07/01/18 at 22:30 Hydromorphone HCl (Dilaudid) 1 mg Q4H PRN IV SEVERE PAIN LEVEL 7-10 Last administered on 07/04/18 13:41; Admin Dose 1 MG; Start 07/03/18 at 16:00 LACEY FELICIANO Jul 04, 2018 15:09
--- NOTE | 2018-07-04 17:47 | CONS ---
Date/Time of Note Date/Time of Note DATE: 07/04/18 TIME: 17:45 Assessment/Plan Assessment/Plan Assessment/Plan Sickle cell crisis Currently being treated with IV fluids, pain control medications and has required transfusions. He is improving at this time Anemia secondary to sickle cell Being transfused No evidence of focal infection Had a long discussion with patient will continue with his p.o. and IV pain control medications tonight tomorrow morning we will discontinue IV Dilaudid maintain p.o. for a short period of time. Patient agrees with regimen. Result Diagram: 07/04/18 0624 07/04/18 0624 Results 24hrs Laboratory Tests Test 07/04/18 06:24 White Blood Count 15.9 H Red Blood Count 2.47 L Hemoglobin 7.9 L Hematocrit 22.0 L Mean Corpuscular Volume 89.1 Mean Corpuscular Hemoglobin 32.0 Mean Corpuscular Hemoglobin Concent 35.9 Red Cell Distribution Width 19.7 H Platelet Count 631 H Mean Platelet Volume 10.7 H Immature Granulocytes % 1.100 H Neutrophils % 69.0 Lymphocytes % 18.8 Monocytes % 9.7 Eosinophils % 1.0 Basophils % 0.4 Nucleated Red Blood Cells % 9.5 H Immature Granulocytes # 0.180 H Neutrophils # 11.0 H Lymphocytes # 3.0 H Monocytes # 1.5 H Eosinophils # 0.2 Basophils # 0.1 Nucleated Red Blood Cells # 1.5 H Sodium Level 136 Potassium Level 3.8 Chloride Level 100 Carbon Dioxide Level 28 Anion Gap 8 Blood Urea Nitrogen 6 L Creatinine 0.46 L Est Glomerular Filtrat Rate mL/min > 60 Glucose Level 84 Calcium Level 9.1 Phosphorus Level 3.7 Magnesium Level 1.7 Consultation Date/Type/Reason Admit Date/Time Jun 30, 2018 at 11:56 Hx of Present Illness 23-year-old gentleman who is well-known to me from prior hospitalizations for sickle cell crisis. This episode began approximately 1 week prior to his presentation the patient states he became dehydrated was exposed to cold weather. He tried to treat himself as an outpatient was unsuccessful presented to the emergency room x1 given Percocet and discharged. The following day he needed to return for symptoms out of control. It is similar episodes as he has had in the past with pain in his bilateral pelvis bilateral shoulder however now with current treatment patient's pain is primarily in his left shoulder all other areas have resolved. Patient is compliant with his treatment legitimate with his history. Pain is described as 10/10 when he first presented now he is 3/10. He is receiving a combination of p.o. and IV Dilaudid but he admits that he can probably tolerate decreasing doses of IV pain control medications at this time . Denies any further complication of nausea vomiting dizziness diplopia disorientation diarrhea or constipation. Constitutional: No no complaints, No improved, No chills, No diaphoresis, No disoriented, No febrile, No poor po, No requiring IVF, No requiring O2, No other Eyes: No no complaints, No pain, No discharge, No redness, No visual change, No other ENT: No no complaints, No bleeding, No pain, No congestion, No discharge, No dysphagia, No sore throat, No other Respiratory: No no complaints, No pain, No cough, No pleuritic pain, No shortness of breath, No sputum, No wheezing, No other Cardiovascular: No no complaints, No chest pain, No edema, No lightheadedness, No orthopenea, No palpitations, No paroxysmal nocturnal dyspnea, No other Gastrointestinal: No no complaints, No pain, No blood, No constipation, No decreased appetite, No diarrhea, No flatus, No nausea, No passing stool, No vomiting, No other Genitourinary: No no complaints, No bleeding, No dysuria, No discharge, No flank pain, No hematuria, No other Musculoskeletal: back pain, bone/joint pain, neck pain Skin: No no complaints, No bruising, No erythema, No laceration, No pruritis, No rash, No skin lesions, No other Neurologic: No no complaints, No confusion, No dizziness, No focal-weakness, No headache, No syncope, No seizure, No other Psychological: No no complaints, No nl mood/affect, No anxiety, No confusion, No depression, No suicidal, No other Past Medical History Medications Current Medications Sodium Chloride 1,000 ml @ 125 mls/hr Q8H IV Last administered on 07/04/18at 0 9:34; Admin Dose 125 MLS/HR; Start 06/30/18 at 14:21 IV Flush (NS 3 ml) 3 ml PER PROTOCOL IV ; Start 06/30/18 at 14:30 Ondansetron HCl (Zofran Inj) 4 mg Q6H PRN IV NAUSEA AND/OR VOMITING; Start at 14:30 Enoxaparin Sodium (Lovenox) 40 mg DAILY SC Last administered on 07/04/18 08:01; Admin Dose 40 MG; Start 07/01/18 at 09:00 Senna (Senokot) 1 tab BID PO Last administered on 07/04/18 08:01; Admin Dose 1 TAB; Start 06/30/18 at 14:30 Folic Acid (Folic Acid) 1 mg DAILY PO Last administered on 07/04/18 08:01; Admin Dose 1 MG; Start 07/01/18 at 09:00 Hydroxyurea (Hydrea) 1,500 mg BID PO Last administered on 07/04/18 08:01; Admin Dose 1,500 MG; Start 06/30/18 at 21:00 Hydromorphone HCl (Dilaudid) 4 mg Q4H PRN PO MODERATE PAIN LEVEL 4-6 Last administered on 07/04/18 15:45; Admin Dose 4 MG; Start 07/01/18 at 10:00 Diphenhydramine HCl (Benadryl) 25 mg Q6H PRN PO ITCHING Last administered on 07/04/18 12:52; Admin Dose 25 MG; Start 07/01/18 at 10:30 Acetaminophen (Tylenol Tab) 650 mg Q6H PRN PO MILD PAIN(1-3)OR ELEVATED TEMP Last administered on 07/01/18at 22:13; Admin Dose 650 MG; Start 07/01/18 at 22:30 Hydromorphone HCl (Dilaudid) 1 mg Q4H PRN IV SEVERE PAIN LEVEL 7-10 Last administered on 07/04/18 17:39; Admin Dose 1 MG; Start 07/03/18 at 16:00 Allergies: Coded Allergies: No Known Allergy (Unverified , 06/30/18) Social History Alcohol Use: occasionally Smoking Status: Never smoker Drug Use: marijuana Exam/Review of Systems Vital Signs Vitals Vital Signs Date Temp Pulse Resp B/P (MAP) Pulse Ox O2 O2 Flow FiO2 Time Delivery Rate 07/04/18 98.7 98 18 121/76 93 15:01 (91) 07/03/18 2.0 23:46 07/02/18 Room Air 15:07 Intake and Output 07/03/18 07/03/18 07/04/18 1515:00 23:00 07:00 IntakeIntake Total 600 ml 1750 ml 1415 ml OutputOutput Total 940 ml 750 ml 1200 ml BalanceBalance -340 ml 1000 ml 215 ml Exam Constitutional: alert, oriented, well developed; No non-verbal, No distress, No frail, No obese, No other Psych: no complaints, nl mood/affect; No anxiety, No confusion, No depression, No suicidal, No other Head: No normocephalic, No atraumatic, No lacerations, No hematomas, No other Eyes: No nl conjunctiva, No EOMI, No nl lids, No nl sclera, No PERRL, No icteric, No fundi, disc, No other ENMT: No nl external ears & nose, No nl lips & teeth, No nl nasal mucosa & septum, No mucosa pink and moist, No intubated, No tympanic membranes, No other Neck: No supple, No non-tender, No jvd, No bruits, No masses, No thyromegaly, No nuchal rigidity, No other Respiratory: clear to auscultation, normal air movement; No congested cough, No crackles/rales, No diminished breath sounds, No intercostal retraction, No labored breathing, No respirations, No tactile fremitus, No wheezing, No other Cardiovascular: regular rate and rhythm, nl pulses; No bruits, No diastolic murmur, No edema, No gallop, No irregular rhythm, No jugular venous distention (JVD), No murmurs/extra sounds, No rub, No systolic murmur, No S3, No S4, No other Neurological: CRAFT COORDINATOR II-XII intact, nl mental status, nl speech, nl strength; No confused, No DTR's symmetric, No focal weakness, No lethargic, No numbness, No reflexes, No unresponsive, No other Medications Medications Current Medications Sodium Chloride 1,000 ml @ 125 mls/hr Q8H IV Last administered on 07/04/18at 09:34; Admin Dose 125 MLS/HR; Start 06/30/18 at 14:21 IV Flush (NS 3 ml) 3 ml PER PROTOCOL IV ; Start 06/30/18 at 14:30 Ondansetron HCl (Zofran Inj) 4 mg Q6H PRN IV NAUSEA AND/OR VOMITING; Start 06/30/18 at 14:30 Enoxaparin Sodium (Lovenox) 40 mg DAILY SC Last administered on 07/04/18 08:01; Admin Dose 40 MG; Start 07/01/18 at 09:00 Senna (Senokot) 1 tab BID PO Last administered on 07/04/18 08:01; Admin Dose 1 TAB; Start 06/30/18 at 14:30 Folic Acid (Folic Acid) 1 mg DAILY PO Last administered on 07/04/18 08:01; Admin Dose 1 MG; Start 07/01/18 at 09:00 Hydroxyurea (Hydrea) 1,500 mg BID PO Last administered on 07/04/18 08:01; Admin Dose 1,500 MG; Start 06/30/18 at 21:00 Hydromorphone HCl (Dilaudid) 4 mg Q4H PRN PO MODERATE PAIN LEVEL 4-6 Last administered on 07/04/18 15:45; Admin Dose 4 MG; Start 07/01/18 at 10:00 Diphenhydramine HCl (Benadryl) 25 mg Q6H PRN PO ITCHING Last administered on 07/04/18 12:52; Admin Dose 25 MG; Start 07/01/18 at 10:30 Acetaminophen (Tylenol Tab) 650 mg Q6H PRN PO MILD PAIN(1-3)OR ELEVATED TEMP Last administered on 07/01/18at 22:13; Admin Dose 650 MG; Start 07/01/18 at 22:30 Hydromorphone HCl (Dilaudid) 1 mg Q4H PRN IV SEVERE PAIN LEVEL 7-10 Last administered on 07/04/18 17:39; Admin Dose 1 MG; Start 07/03/18 at 16:00 QUYEN RIZVI Jul 04, 2018 17:47
--- NOTE | 2018-07-04 18:10 | NUR ---
NURSE NOTE: no acute changes. pt is axox4. no signs of distress. pain medication given. pt tolerated blood transfusion well. Dr. Navarrete spoke to the patient and RN was present in the room. Pt is aware and verbalized understanding that IV pain medication will be discontinued tomorrow morning per Dr. Navarrete. Pt bed alarm on on. Heating pad is on and off for 20 mins per pt. All needs were met. Will continue to monitor.
[2018-07-04 20:00] VITALS: BP 122/69; PULSE 110; RESP 18
[2018-07-05] MEDS: HYDROmorphONE 1 MG/ML SYG IV PRN ×2 (01:49→05:50)
[2018-07-05 02:00] VITALS: BP 120/75; PULSE 83; RESP 18
[2018-07-05] MEDS: HYDROmorphONE 4 MG TAB PO PRN ×5 (04:48→21:47)
[2018-07-05] MEDS: SOD CHLORIDE 0.45% 1,000 ML IV SCH ×3 (05:50→21:49)
--- NOTE | 2018-07-05 05:56 | NUR ---
VS stable. Pt c/o pain throughout the night and medicated with PRN Dilaudid PO and IV. Pt is aware that his IV Dilaudid will be d/c this morning and pt states he understands. Hourly rounding provided. Bed at the lowest position with alarms on and call light within reach. Depending pt's H&H labs today pt might get d/c. Will endorse continuity of care to oncoming nurse.
[2018-07-05 08:12] VITALS: BP 113/68; PULSE 79; RESP 18
[2018-07-05] MEDS: HYDROXYUREA 500 MG CAP PO SCH ×2 (08:37→21:10)
[2018-07-05] MEDS: FOLIC ACID 1 MG TAB PO SCH (08:37)
[2018-07-05] MEDS: ENOXAPARIN 40 MG/0.4 ML SYG SC SCH (08:37)
[2018-07-05] MEDS: SENNA TAB PO SCH ×2 (08:38→21:09)
--- NOTE | 2018-07-05 12:51 | PN ---
Date/Time of Note Date/Time of Note DATE: 07/05/18 TIME: 12:50 Assessment/Plan VTE Prophylaxis Risk score (from Nsg)>0 risk: 0 SCD applied (from Ns): No SCD contraindicated: other Pharmacological prophylaxis: LMWH Lines/Catheters IV Catheter Type (from Nrsg): Peripheral IV Urinary Cath still in place: No Assessment/Plan Hospital Course S: No acute events overnight, received blood transfusion yesterday. O: VS - see below PE: Gen: Lying in bed, young man in no acute distress presently Eyes: PERRL, no icterus HEENT: Moist mucous membranes. Clear oropharynx Neck: Nontender no lymphadenopathy Card: Regular rate and rhythm, no murmurs Chest: Chest nontender Pulm: Clear to auscultation bilaterally. Abd: Soft, nontender, nondistended. Ext: Good peripheral pulses. Nontender R shoulder, elbow, knee with full ROM, no lower extremity edema bilaterally Assessment/Plan: 23 yo man with sickle cell disease presents with crisis. #Sickle cell crisis-slowly improving, presented initially with diffuse bone pain and leukocytosis, dehydration.- Likely precipitated by dehydration after heavy drinking followed by brief gastroenteritis. -Continue pain control: Appreciate pain management consult, per their recommendations continue only PO dilaudid as needed, Benadryl for itching. -Continue IV fluids - CXR with scant infiltrates which may represent atelectasis. However he also had hypoxia also requiring nasal cannula. Remaining vigilant for acute chest syndrome. #Anemia -patient presented with hemoglobin of 6.7, received blood transfusion earlier this admission, and again yesterday, today hemoglobin stable at 8.6 -Monitor for now Result Diagram: 07/05/18 0558 07/05/18 0558 Results 24hrs Laboratory Tests Test 07/05/18 05:58 07/05/18 06:50 White Blood Count 12.6 #H Red Blood Count 2.74 L Hemoglobin 8.6 L Hematocrit 24.8 L Mean Corpuscular Volume 90.5 Mean Corpuscular Hemoglobin 31.4 Mean Corpuscular Hemoglobin Concent 34.7 Red Cell Distribution Width 18.1 H Platelet Count 582 H Mean Platelet Volume 10.8 H Immature Granulocytes % 1.000 H Neutrophils % 62.3 Lymphocytes % 26.2 Monocytes % 8.7 Eosinophils % 1.3 Basophils % 0.5 Nucleated Red Blood Cells % 13.3 H Immature Granulocytes # 0.130 H Neutrophils # 7.8 H Lymphocytes # 3.3 H Monocytes # 1.1 H Eosinophils # 0.2 Basophils # 0.1 Nucleated Red Blood Cells # 1.7 H Sodium Level 137 Potassium Level 4.2 Chloride Level 103 Carbon Dioxide Level 27 Anion Gap 7 Blood Urea Nitrogen 7 Creatinine 0.49 L Est Glomerular Filtrat Rate mL/min > 60 Glucose Level 94 Calcium Level 9.5 Lab Scanned Report BLOOD TRANSFUSION Exam/Review of Systems Vital Signs Vitals Vital Signs Date Temp Pulse Resp B/P (MAP) Pulse Ox O2 O2 Flow FiO2 Time Delivery Rate 07/05/18 98.2 79 18 113/68 96 Room Air 08:12 (83) 07/04/18 2.0 21:46 Intake and Output 07/04/18 07/04/18 07/05/18 1515:00 23:00 07:00 IntakeIntake Total 1680 ml 615 ml 1100 ml OutputOutput Total 500 ml 740 ml 1800 ml BalanceBalance 1180 ml -125 ml -700 ml Medications Medications Current Medications Sodium Chloride 1,000 ml @ 125 mls/hr Q8H IV Last administered on 07/05/18 05:50; Admin Dose 125 MLS/HR; Start 06/30/18 at 14:21 IV Flush (NS 3 ml) 3 ml PER PROTOCOL IV ; Start 06/30/18 at 14:30 Ondansetron HCl (Zofran Inj) 4 mg Q6H PRN IV NAUSEA AND/OR VOMITING; Start 06/30/18 at 14:30 Enoxaparin Sodium (Lovenox) 40 mg DAILY SC Last administered on 07/05/18 08:37; Admin Dose 40 MG; Start 07/01/18 at 09:00 Senna (Senokot) 1 tab BID PO Last administered on 07/05/18 08:38; Admin Dose 1 TAB; Start 06/30/18 at 14:30 Folic Acid (Folic Acid) 1 mg DAILY PO Last administered on 07/05/18 08:37; Admin Dose 1 MG; Start 07/01/18 at 09:00 Hydroxyurea (Hydrea) 1,500 mg BID PO Last administered on 07/05/18 08:37; Admin Dose 1,500 MG; Start 06/30/18 at 21:00 Hydromorphone HCl (Dilaudid) 4 mg Q4H PRN PO MODERATE PAIN LEVEL 4-6 Last admi nistered on 07/05/18 09:13; Admin Dose 4 MG; Start 07/01/18 at 10:00 Diphenhydramine HCl (Benadryl) 25 mg Q6H PRN PO ITCHING Last administered on 07/04/18 23:25; Admin Dose 25 MG; Start 07/01/18 at 10:30 Acetaminophen (Tylenol Tab) 650 mg Q6H PRN PO MILD PAIN(1-3)OR ELEVATED TEMP Last administered on 07/01/18at 22:13; Admin Dose 650 MG; Start 07/01/18 at 22:30 LACEY FELICIANO Jul 05, 2018 12:51
[2018-07-05 14:44] VITALS: BP 114/70; PULSE 80; RESP 18
--- NOTE | 2018-07-05 16:03 | NUR ---
RN Notes: Patient remains alert and oriented, afebrile, no acute distress noted c/o pain medicated as ordered with some relief. Hourly rounding done, call light within reach, bed alarm on. Will continue to monitor until the end of the shift. Addendum: 07/05/18 at 1901 by LOGAN ROSA RN No significant events during this shift. Will endorse to next shift for continuity of care
[2018-07-05 20:48] VITALS: BP 120/78; PULSE 82; RESP 18
[2018-07-06] MEDS: HYDROmorphONE 4 MG TAB PO PRN ×2 (01:50→05:58)
[2018-07-06 02:00] VITALS: BP 105/65; PULSE 78; RESP 18
[2018-07-06 07:30] VITALS: BP 116/69; PULSE 64; RESP 18
[2018-07-06] MEDS ORDERED: HYDROmorphONE 2 MG TAB PO PRN (07:30)
--- NOTE | 2018-07-06 07:32 | CONS ---
Date/Time of Note Date/Time of Note DATE: 07/06/18 TIME: 07:30 Consult Date/Type/Reason Admit Date/Time Jun 30, 2018 at 11:56 Initial Consult Date Objective Vital Signs Date Temp Pulse Resp B/P (MAP) Pulse Ox O2 O2 Flow FiO2 Time Delivery Rate 07/06/18 98.5 78 18 105/65 97 02:00 (78) 07/06/18 2.0 01:56 07/05/18 Room Air 14:44 Intake and Output 07/05/18 07/05/18 07/06/18 1515:00 23:00 07:00 IntakeIntake Total 2160 ml 775 ml 450 ml OutputOutput Total 600 ml 350 ml 1200 ml BalanceBalance 1560 ml 425 ml -750 ml Results/Medications Result Diagram: 07/05/18 0558 07/05/18 0558 Medications Current Medications Sodium Chloride 1,000 ml @ 125 mls/hr Q8H IV Last administered on 07/05/18 21:49; Admin Dose 125 MLS/HR; Start 06/30/18 at 14:21 IV Flush (NS 3 ml) 3 ml PER PROTOCOL IV ; Start 06/30/18 at 14:30 Ondansetron HCl (Zofran Inj) 4 mg Q6H PRN IV NAUSEA AND/OR VOMITING; Start 06/30/18 at 14:30 Enoxaparin Sodium (Lovenox) 40 mg DAILY SC Last administered on 07/05/18 08:37; Admin Dose 40 MG; Start 07/01/18 at 09:00 Senna (Senokot) 1 tab BID PO Last administered on 07/05/18 21:09; Admin Dose 1 TAB; Start 06/30/18 at 14:30 Folic Acid (Folic Acid) 1 mg DAILY PO Last administered on 07/05/18 08:37; Admin Dose 1 MG; Start 07/01/18 at 09:00 Hydroxyurea (Hydrea) 1,500 mg BID PO Last administered on 07/05/18 21:10; Admin Dose 1,500 MG; Start 06/30/18 at 21:00 Hydromorphone HCl (Dilaudid) 4 mg Q4H PRN PO MODERATE PAIN LEVEL 4-6 Last administered on 07/06/18 05:58; Admin Dose 4 MG; Start 07/01/18 at 10:00 Diphenhydramine HCl (Benadryl) 25 mg Q6H PRN PO ITCHING Last administered on 07/04/18at 23:25; Admin Dose 25 MG; Start 07/01/18 at 10:30 Acetaminophen (Tylenol Tab) 650 mg Q6H PRN PO MILD PAIN(1-3)OR ELEVATED TEMP Last administered on 07/01/18at 22:13; Admin Dose 650 MG; Start 07/01/18 at 22:30 Assessment/Plan Chief Complaint/Hosp Course 23-year-old gentleman who is well-known to me from prior hospitalizations for sickle cell crisis. This episode began approximately 1 week prior to his presentation the patient states he became dehydrated was exposed to cold weather. He tried to treat himself as an outpatient was unsuccessful presented to the emergency room x1 given Percocet and discharged. The following day he needed to return for symptoms out of control. It is similar episodes as he has had in the past with pain in his bilateral pelvis bilateral shoulder however now with current treatment patient's pain is primarily in his left shoulder all other areas have resolved. Patient is compliant with his treatment legitimate with his history. Pain is described as 10/10 when he first presented now he is 3/10. He is receiving a combination of p.o. and IV Dilaudid but he admits that he can probably tolerate decreasing doses of IV pain control medications at this time . Denies any further complication of nausea vomiting dizziness diplopia disorientation diarrhea or constipation. Additional Assessment/Plan As discussed with patient prior note will lower his pain control medications to 2 mg of Dilaudid every 6 hours as needed. We will have a long discussion with him today concerning outpatient treatment and follow-up with his director of radiology if okay with QUYEN Russ Jul 06, 2018 07:32
[2018-07-06] MEDS: SOD CHLORIDE 0.45% 1,000 ML IV SCH (07:51)
--- NOTE | 2018-07-06 08:02 | PDOCDIS ---
Discharge Instructions CONDITION [id number] Patient Condition: [id number] Stable HOME CARE INSTRUCTIONS: [id number] Special Diet: [id number] regular ACTIVITY: [id number] Activity Restrictions: [id number] Slowly Increase Activity Rest between Activity Avoid heavy lifting FOLLOW UP/APPOINTMENTS Follow-up Plan Please take your medications as prescribed. Please see your doctor in the clinic in the next 1 week. LACEY FELICIANO Jul 06, 2018 08:02
--- NOTE | 2018-07-06 08:04 | DS ---
Date/Time of Note Date/Time of Note DATE: 07/06/18 TIME: 08:02 Discharge Summary Admission/Discharge Info Admit Date/Time Jun 30, 2018 at 11:56 Discharge Date/Time Patient Condition: Stable Hx of Present Illness t 23 yo man with sickle cell disease who presents with nonspecific whole body pain. He was in his usual state of health until last Tuesday when he was out with friends and drank heavily. The next morning he had a headache, nausea, vomiting, and watery diarrhea. For the next two days he continued having poor PO intake and diarrhea. By the diarrhea had resolved and he was able to tolerate regular diet. night he suddenly developed aching bone pain spreading around his body, mostly R knee, R shoulder and arm, chest and back; typical of past sickle cell crises. He took Chazy as prescribed with no relief. So he presented to the ED early Tuesday morning. Last hospitalization was 05/16-05/19 also for sickle cell crisis. In the ED he was afebrile, vital signs stable. Hgb 8.2 which is baseline for him. WBC 18.0. Hospital Course So patient was admitted to medical surgical unit. He was placed on folic acid, hydroxyurea, and IV fluids as well as pain control medications. His symptoms slowly improved regarding his sickle cell crisis. He did require a couple of blood transfusions for low hemoglobin. This was stable by the time of discharge. No signs of any upper or lower GI bleeding. Over the course of his hospital stay, stated above, his overall body pain symptoms slowly improved. He was able to ambulate, tolerated p.o. diet. He was seen by pain management doctor during this hospital stay will help manage his titration of pain medications. He will be discharged home today in improved condition. See below for full list of discharge medications. Home Meds Reported Medications Hydroxyurea* (Hydroxyurea*) 500 Mg Capsule, 1500 MG PO BID, CAP 06/30/18 Folic Acid* (Folic Acid*) 1 Mg Tablet, 1 MG PO DAILY, TAB 06/30/18 Discontinued Scripts Oxycodone HCl/Acetaminophen (Percocet 5-325 mg Tablet) 1 Each Tablet, 1 EACH PO TID for pain, #10 TAB Prov:VILMA CURRY 06/30/18 [Work Note] No Conflict Check [facility] from[facility] is to cert[facility] that 05/16/2018 to 05/19/2018. The patient can return back to work on 05/22/2018 with no restrictions. Prov:CAROLINE AKHTAR NP 05/19/18 Docusate Sodium* (Colace*) 100 Mg Capsule, 100 MG PO BID, #20 CAP Prov:CAROLINE AKHTAR NP 05/19/18 Folic Acid* (Folic Acid*) 1 Mg Tablet, 1 MG PO DAILY, #30 TAB Prov:CAROLINE AKHTAR NP 05/19/18 Hydroxyurea* (Hydrea*) 500 Mg Capsule, 1500 MG PO DAILY, #30 CAP Patient already has supplies. Prov:CAROLINE AKHTAR NP 05/19/18 Hydrocodone Bit-Acetaminophen (Hydrocodone Bit-APAP) 5-325MG Tablet, 1 TAB PO Q6H PRN for MODERATE PAIN LEVEL 4-6, #20 TAB Prov:CAROLINE AKHTAR NP 05/19/18 Follow-up Plan Please take your medications as prescribed. Please see your doctor in the clinic in the next 1 week. Primary Care Provider Care Physician No Primary Time spent on discharge: > 30 minutes LACEY FELICIANO Jul 06, 2018 08:04
[2018-07-06] MEDS: FOLIC ACID 1 MG TAB PO SCH (08:17)
[2018-07-06] MEDS: SENNA TAB PO SCH (08:17)
[2018-07-06] MEDS: HYDROXYUREA 500 MG CAP PO SCH (08:18)
[2018-07-06] MEDS: ENOXAPARIN 40 MG/0.4 ML SYG SC SCH (08:18)
--- NOTE | 2018-07-06 11:27 | NUR ---
RN Notes: Dr. Coburn medically cleared pt to go home with discharge home order. Spoke to pt and made aware regarding discharge order, requested to go home after lunch and said that nobody will pick him up he just leave close to the hospital. Patient alert and oriented x4, ambulatory with steady gait, afebrile, no acute distress noted, breathing even and unlabored, per pt his pain was been controlled and he can go home by himself and per pt he still have medication at home and does need any refill prescription on his regular med and MD gave pain med prescription and a letter from his work. Also pt aware that he need to make follow up appt with his primary care doctor 1 week after discharge. Call light within reach, Needs attended. Addendum: 07/06/18 at 1341 by LOGAN ROSA RN Discharge instruction provided, written education given, pt verbalized understanding regarding discharge instruction and all discharge paperwork was signed and belonging list was signed upon discharge, no personal belonging left in the unit. IV line removed tip intact no active bleeding noted covered with dry dressing. Denies pain/discomfort, no n/v noted, no acute distress noted. Volunteer called and helped pt in the lobby. Pt left the unit in stable condition.
--- NOTE | 2018-07-06 12:00 | NUR ---
SS Note: Consult Pt referred to SW for transportation assistance. The patient is a 23-year-old male admitted due to sickle cell pain. Pt medically cleared for d/c. Pt confirmed address on facesheet. He stated his home is about 15 minutes away and feels comfortable walking back home. Pt is independent with ADL's and does not require DME. Pt accepted 2 bus tokens to assist him in getting back home.
== END 2018-07-06 13:44 | disposition home or self-care (01) | DRG 812 ==
LOC: E/R 10:30 → PP2 11:56
PROVIDERS: ADMIT Internal Medicine; ATTEND Hospitalist
PROC: 30233N1 Transfusion of Nonautologous Red Blood Cells into Peripheral Vein, Percutaneous Approach (ICD-10-PCS; principal; 2018-07-02)
DX: D57.00 Hb-SS disease with crisis, unspecified (principal); K52.9 Noninfective gastroenteritis and colitis, unspecified; E86.0 Dehydration; R09.02 Hypoxemia
CPT/HCPCS: 36430; 71045; 73562; 80048; 80053; 83010; 83036; 83615; 83735; 84100; 85025; 85045; 86850; 86870; 86900; 86901; 86920; 96374; J1170; J1650; J1885; J7030; J7040; P9011; P9016

== ENCOUNTER 2018-07-12 22:32 | Inpatient (IN) | payer OTHER ==
[~2018-07-12] VITALS: Ht 177.8 cm; Wt 66.6 kg
[~2018-07-12 22:32] MED LIST changes: -DOCU-144 PO; -HYDR-3601 PO; +HYDR4TAB PO; -HYDR500C14 PO; +HYDR500C3 PO; -OXYC-279 PO; -Work Note
[2018-07-13] MEDS ORDERED: SOD CHLORIDE 0.9% 1,000 ML IV ONE (01:00)
[2018-07-13] MEDS ORDERED: HYDROmorphONE 1 MG/ML SYG IV ONE (01:00)
[2018-07-13] MEDS ORDERED: ONDANSETRON 4 MG INJ IV ONE (01:00)
--- NOTE | 2018-07-13 03:17 | ERD ---
ER Documentation Chief Complaint Chief Complaint SICKLE CELL CRISIS HPI This is a 23-year-old male who complains of body pain secondary to sickle cell pain crisis. Patient is well-known to us. Reviewing EMR, patient's been here a few times for this in the past. No fevers no chills. No chest pain. No palpitations. No other current complaints. ROS All systems reviewed and are negative except as per history of present illness. Medications Home Meds Reported Medications Hydromorphone Hcl (Dilaudid) 4 Mg Tab, 4 MG PO PRN for PAIN LEVEL 4-6 07/13/18 Hydroxyurea* (Hydroxyurea*) 500 Mg Capsule, 1500 MG PO BID, CAP 06/30/18 Folic Acid* (Folic Acid*) 1 Mg Tablet, 1 MG PO DAILY, TAB 06/30/18 Allergies Allergies: Coded Allergies: No Known Allergy (Unverified , 06/30/18) PMhx/Soc History of Surgery: No Anesthesia Reaction: No Hx Neurological Disorder: No Hx Respiratory Disorders: No Hx Cardiac Disorders: No Hx Psychiatric Problems: Yes (DEPRESSION) Hx Miscellaneous Medical Probl: Yes (SICKLE CELL ANEMIA) Hx Alcohol Use: Yes (OCCASIONAL) Hx Substance Use: Yes (CANNABIS DAILY) Hx Tobacco Use: No Smoking Status: Former smoker Physical Exam Vitals Vital Signs Date Temp Pulse Resp B/P (MAP) Pulse Ox O2 O2 Flow FiO2 Time Delivery Rate 07/13/18 97.4 89 18 128/80 98 Room Air 02:44 (96) 07/13/18 100 18 128/76 100 Room Air 00:45 (93) 07/12/18 97.4 105 18 133/75 98 22:34 (94) Physical Exam Const: No acute distress Head: Atraumatic Eyes: Normal Conjunctiva ENT: Normal External Ears, Nose and Mouth. Neck: Full range of motion. No meningismus. Resp: Clear to auscultation bilaterally Cardio: Regular rate and rhythm, no murmurs Abd: Soft, non tender, non distended. Normal bowel sounds Skin: No petechiae or rashes Back: No midline or flank tenderness Ext: No cyanosis, or edema Neur: Awake and alert Psych: Normal Mood and Affect Result Diagram: 07/13/1811407/13/18114 Results 24 hrs Laboratory Tests Test 07/13/18 01:15 White Blood Count 17.4 10^3/ul Red Blood Count 2.19 10^6/ul Hemoglobin 7.7 g/dl Hematocrit 22.9 % Mean Corpuscular Volume 104.6 fl Mean Corpuscular Hemoglobin 35.2 pg Mean Corpuscular Hemoglobin Concent 33.6 g/dl Red Cell Distribution Width 21.5 % Platelet Count 651 10^3/UL Mean Platelet Volume 10.2 fl Immature Granulocytes % 1.100 % Neutrophils % 62.5 % Lymphocytes % 24.0 % Monocytes % 11.8 % Eosinophils % 0.2 % Basophils % 0.4 % Nucleated Red Blood Cells % 22.0 /100WBC Immature Granulocytes # 0.200 10^3/ul Neutrophils # 10.9 10^3/ul Lymphocytes # 4.2 10^3/ul Monocytes # 2.1 10^3/ul Eosinophils # 0.0 10^3/ul Basophils # 0.1 10^3/ul Nucleated Red Blood Cells # 3.8 10^3/ul Absolute Reticulocyte Count 0.216 X10^6 Percent Reticulocyte Count 9.9 % Sodium Level 141 mmol/L Potassium Level 4.8 mmol/L Chloride Level 105 mmol/L Carbon Dioxide Level 23 mmol/L Anion Gap 13 Blood Urea Nitrogen 8 mg/dl Creatinine 0.38 mg/dl Est Glomerular Filtrat Rate mL/min > 60 mL/min Glucose Level 91 mg/dl Calcium Level 9.8 mg/dl Lactate Dehydrogenase 2299 IU/L Current Medications Medications Dose Sig/Pablo Start Time Status Last (Trade) Ordered Route PRN Stop Time Admin Dose Reason Admin Sodium 1,000 ml @ Q1H ONCE 07/13/18 DC 07/13/18 Chloride 1,000 mls/hr IV 01:00 01:24 07/13/18 01:59 1 mg ONCE ONCE 07/13/18 DC 07/13/18 Hydromorphone IV 01:00 01:24 HCl 07/13/18 01:01 (Dilaudid) Ondansetron 4 mg ONCE ONCE 07/13/18 DC 07/13/18 HCl (Zofran IV 01:00 01:24 Inj) 07/13/18 01:01 Procedures/MDM Medical decision m[age]-year-old male with evidence of sickle cell vaso-occl usive crisis. Given his continued pain, patient will be admitted for further evaluation management and hydration. No evidence of acute chest syndrome. Patient will be admitted to Dr. Winter Departure Diagnosis: Primary Impression: Vaso-occlusive sickle cell crisis Condition: Serious ALCIDES BONNER Jul 13, 2018 03:17
[2018-07-13] MEDS ORDERED: NACL 0.9% 3 ML SYG IV SCH (03:30)
[2018-07-13] MEDS ORDERED: ACETAMINOPHEN 325 MG TAB PO PRN (03:30)
[2018-07-13] MEDS ORDERED: ONDANSETRON 4 MG TAB PO PRN (03:30)
[2018-07-13] MEDS ORDERED: BISACODYL (EC) 5 MG TAB PO PRN (03:30)
[2018-07-13] MEDS ORDERED: HYDROCODONE/APAP (5/325) TAB PO PRN (03:30)
[2018-07-13] MEDS ORDERED: DOCUSATE SODIUM 100 MG CAP PO PRN (03:30)
[2018-07-13 04:20] VITALS: Ht 177.8 cm; Wt 66.6 kg
[2018-07-13] MEDS: SOD CHLORIDE 0.9% 1,000 ML IV SCH ×3 (04:54→20:42)
[2018-07-13 05:02] VITALS: BP 139/86; PULSE 88; RESP 20
[2018-07-13] MEDS: HYDROmorphONE 0.5 MG/0.5 ML SYG IV PRN ×2 (06:35→10:18)
--- NOTE | 2018-07-13 07:32 | HP ---
Date/Time of Note Date/Time of Note DATE: 07/13/18 TIME: 07:24 Assessment/Plan VTE Prophylaxis Pharmacological prophylaxis: LMWH Lines[facility] IV Urinary Cath still in place: No Assessment/Plan Hospital Course This is a 23-year-old male being admitted to the [facility] floor for: #1 sickle cell crisis: Pain control with [place]/Dilaudid, saline. Continue hydroxyurea. Will obtain a chest x-ray. He is currently afebrile. Leukocytosis likely reactive, however will continue to monitor for any signs of infection. Continue hydroxyurea and folic acid. Hemoglobin at the current time is 7.7 we will continue to monitor and transfuse if hemoglobin drops below 7. #2 DVT GI prophylaxis: Lovenox, no GI prophylaxis indicated Further treatment strategy will be recommended as per the clinical course Result Diagram: 07/13/1811407/13/185 Results 24hrs Laboratory Tests Test 07/13/18 01:15 White Blood Count 17.4 #H Red Blood Count 2.19 #L Hemoglobin 7.7 L Hematocrit 22.9 L Mean Corpuscular Volume 104.6 H Mean Corpuscular Hemoglobin 35.2 H Mean Corpuscular Hemoglobin Concent 33.6 Red Cell Distribution Width 21.5 #H Platelet Count 651 H Mean Platelet Volume 10.2 Immature Granulocytes % 1.100 H Neutrophils % 62.5 Lymphocytes % 24.0 Monocytes % 11.8 H Eosinophils % 0.2 Basophils % 0.4 Nucleated Red Blood Cells % 22.0 H Immature Granulocytes # 0.200 H Neutrophils # 10.9 H Lymphocytes # 4.2 H Monocytes # 2.1 H Eosinophils # 0.0 Basophils # 0.1 Nucleated Red Blood Cells # 3.8 H Absolute Reticulocyte Count 0.216 H Percent Reticulocyte Count 9.9 H Sodium Level 141 Potassium Level 4.8 Chloride Level 105 Carbon Dioxide Level 23 Anion Gap 13 Blood Urea Nitrogen 8 Creatinine 0.38 L Est Glomerular Filtrat Rate mL/min > 60 Glucose Level 91 Calcium Level 9.8 Lactate Dehydrogenase 2299 H HPI/ROS Admit Date/Time Admit Date/Time Jul 13, 2018 at 05:05 Hx of Present Illness Chief complaint: Left leg pain This is a 23 female with a history of sickle cell crisis who presents to the emergency department complaining of left lower leg pain. Patient reports that he started experiencing pain yesterday prior to going to work. Than when he was at work he started experiencing severe pain in his left leg will his generalized body pain and it was difficult for him to work. He has similar symptoms in the past when he has sickle cell crisis. He thinks his symptoms may have come about secondary to change in the weather. He took his home Dilaudid that was prescribed to him by sickle cell doctor but that did not help his pain. He has not been around any sick contacts. Denies any fevers. He is scheduled to see his sickle cell doctor at [facility] later today. He denies any chest pain or shortness of breath. Allergies: NKDA Medications Hydroxyurea Folic acid Dilaudid p.o. ROS Const: As per HPI Eyes : No pain discharge or redness or change in visual acuity ENT: No pain, sore throat, congestion, congestion, dysphagia or discharge Respiratory: No shortness of breath, cough, sputum, wheezing, or pleuritic pain Cardiovascular: No chest pain, palpitation, PND, or edema GI : no change in appetite, abdominal pain, nausea, vomiting, diarrhea, constipation, or change in the color his stool Genitourinary: No dysuria, hematuria, flank pain , discharge or CVA tenderness Musculoskeletal: As per HPI Skin: No rash, bruising or hives Neuro: No headache, dizziness, syncope, seizure, focal weakness Endocrine: No polyuria, polydipsia, temperature intolerance Psych: No hallucination, depression, anxiety or suicidal ideation PMH/Family/Social Past Medical History Sickle cell disease Medications Current Medications IV Flush (NS 3 ml) 3 ml PER PROTOCOL IV ; Start 07/13/18 at 03:30 Ondansetron HCl (Zofran Tab) 4 mg Q6H PRN PO NAUSEA AND/OR VOMITING; Start 07/13/18 at 03:30 Acetaminophen (Tylenol Tab) 650 mg Q6H PRN PO PAIN LEVEL 1-3 OR FEVER; Start 07/13/18 at 03:30 Acetaminophen/ Hydrocodone Bitart ([place] (5/325)) 1 tab Q6H PRN PO MODERATE PAIN LEVEL 4-6 Last administered on 07/13/18at 04:34; Admin Dose 1 TAB; Start 07/13/18 at 03:30 Hydromorphone HCl (Dilaudid) 0.5 mg Q4H PRN IV SEVERE PAIN LEVEL 7-10 Last administered on 07/13/18at 06:35; Admin Dose 0.5 MG; Start 07/13/18 at 03:30 Docusate Sodium (Colace) 100 mg Q12H PRN PO CONSTIPATION; Start 07/13/18 at 03:30 Bisacodyl (Dulcolax) 5 mg DAILY PRN PO CONSTIPATION; Start 07/13/18 at 03:30 Enoxaparin Sodium (Lovenox) 40 mg DAILY SC ; Start 07/13/18 at 09:00 Sodium Chloride 1,000 ml @ 125 mls/hr Q8H IV Last administered on 07/13/18at 04:54; Admin Dose 125 MLS/HR; Start 07/13/18 at 04:00 Coded Allergies: No Known Allergy (Unverified , 06/30/18) Past Surgical History Past Surgical Hx: no surgical history Family History Significant Family History: no pertinent family hx Social History Alcohol Use: none Smoking Status: Current every day smoker Drug Use: none Exam/Review of Systems Vital Signs Vitals Vital Signs Date Temp Pulse Resp B/P (MAP) Pulse Ox O2 O2 Flow FiO2 Time Delivery Rate 07/13/18 98.2 88 20 139/86 100 Room Air 05:02 (103) Intake and Output 07/12/18 07/12/18 07/13/18 1515:00 23:00 07:00 IntakeIntake Total 200 ml BalanceBalance 200 ml Exam Exam General: Patient is a pleasant male currently lying in bed in mild distress from pain, he does report pain in his leg HEENT: Atraumatic, normocephalic. The pupils are equal, round and reactive. Extraocular motor are intact Neck: Supple with full range of motion. No rigidity or meningismus Chest: Nontender Lungs: Clear to auscultation bilaterally no crackles rales or wheezing Heart: Normal S1-S2, Regular rhythm and rate. No murmur, S3, or S4 Abdomen: Soft , nontender, nondistended , bowel sounds are present. No guarding no rebound tenderness , No masses or organomegaly. No costovertebral temporal angle mass Extremities: Normal to inspection, no edema no cyanosis Neurologic: Normal mental status, speech normal, cranial nerves II through XII are intact, motor and sensory are intact, VIOLA DEL TORO Jul 13, 2018 07:32
[2018-07-13 07:58] VITALS: BP 112/66; PULSE 75; RESP 18
[2018-07-13] MEDS: ENOXAPARIN 40 MG/0.4 ML SYG SC SCH (09:00)
--- NOTE | 2018-07-13 09:12 | PN ---
Date/Time of Note Date/Time of Note DATE: 07/13/18 TIME: 09:12 Assessment/Plan VTE Prophylaxis SCD applied (from Nsg): Yes Pharmacological prophylaxis: LMWH Lines/Catheters IV Catheter Type (from Nrsg): Peripheral IV Urinary Cath still in place: No Assessment/Plan Assessment/Plan 1. Acute sickle cell crisis - Patient states he thinks the weather caused his exacerbation - Will continue with pain control and Pain management consultation placed - Continued on Hydroxyurea - Patient states his treating physician as outpatient does not want any transfusions to be given - denies any chest pain or shortness of breath 2. Leukocytosis - most likely reactive since no signs of infection appreciated. 3. Disposition - continue pain control and monitoring hgb. When symptoms improve, will d/c home Result Diagram: 07/13/1811407/13/18114 Results 24hrs Laboratory Tests Test 07/13/18 01:15 White Blood Count 17.4 #H Red Blood Count 2.19 #L Hemoglobin 7.7 L Hematocrit 22.9 L Mean Corpuscular Volume 104.6 H Mean Corpuscular Hemoglobin 35.2 H Mean Corpuscular Hemoglobin Concent 33.6 Red Cell Distribution Width 21.5 #H Platelet Count 651 H Mean Platelet Volume 10.2 Immature Granulocytes % 1.100 H Neutrophils % 62.5 Lymphocytes % 24.0 Monocytes % 11.8 H Eosinophils % 0.2 Basophils % 0.4 Nucleated Red Blood Cells % 22.0 H Immature Granulocytes # 0.200 H Neutrophils # 10.9 H Lymphocytes # 4.2 H Monocytes # 2.1 H Eosinophils # 0.0 Basophils # 0.1 Nucleated Red Blood Cells # 3.8 H Absolute Reticulocyte Count 0.216 H Percent Reticulocyte Count 9.9 H Sodium Level 141 Potassium Level 4.8 Chloride Level 105 Carbon Dioxide Level 23 Anion Gap 13 Blood Urea Nitrogen 8 Creatinine 0.38 L Est Glomerular Filtrat Rate mL/min > 60 Glucose Level 91 Calcium Level 9.8 Lactate Dehydrogenase 2299 H Subjective 24 Hr Interval Summary Free Text/Dictation Patient states he was doing okay after discharge last week but started feeling generalized pains. Believes it may be associated with the weather. States his physician does not want him receiving any blood transfusions. Pt denies any chest pain or shortness of breath, pruritus, or GI symptoms. Exam/Review of Systems Vital Signs Vitals Vital Signs Date Temp Pulse Resp B/P (MAP) Pulse Ox O2 O2 Flow FiO2 Time Delivery Rate 07/13/18 97.7 75 18 112/66 98 Room Air 07:58 (81) Intake and Output 07/12/18 07/12/18 07/13/18 1515:00 23:00 07:00 IntakeIntake Total 200 ml BalanceBalance 200 ml Exam General: Patient is a pleasant male currently lying in bed in mild distress from pain Neck: Supple Chest: Nontender Lungs: Clear to auscultation bilaterally no crackles rales or wheezing Heart: Normal S1-S2, Regular rhythm and rate. No murmur, S3, or S4 Abdomen: Soft , nontender, nondistended , bowel sounds are present. No guarding no rebound tenderness Extremities: Normal to inspection, no edema no cyanosis Medications Medications Current Medications IV Flush (NS 3 ml) 3 ml PER PROTOCOL IV ; Start 07/13/18 at 03:30 Ondansetron HCl (Zofran Tab) 4 mg Q6H PRN PO NAUSEA AND/OR VOMITING; Start 07/13/18 at 03:30 Acetaminophen (Tylenol Tab) 650 mg Q6H PRN PO PAIN LEVEL 1-3 OR FEVER; Start 07/13/18 at 03:30 Acetaminophen/ Hydrocodone Bitart ([place] (5/325)) 1 tab Q6H PRN PO MODERATE PAIN LEVEL 4-6 Last administered on 07/13/18at 04:34; Admin Dose 1 TAB; Start 07/13/18 at 03:30 Hydromorphone HCl (Dilaudid) 0.5 mg Q4H PRN IV SEVERE PAIN LEVEL 7-10 Last administered on 07/13/18at 06:35; Admin Dose 0.5 MG; Start 07/13/18 at 03:30 Docusate Sodium (Colace) 100 mg Q12H PRN PO CONSTIPATION; Start 07/13/18 at 03:30 Bisacodyl (Dulcolax) 5 mg DAILY PRN PO CONSTIPATION; Start 07/13/18 at 03:30 Enoxaparin Sodium (Lovenox) 40 mg DAILY SC ; Start 07/13/18 at 09:00 Sodium Chloride 1,000 ml @ 125 mls/hr Q8H IV Last administered on 07/13/18at 04:54; Admin Dose 125 MLS/HR; Start 07/13/18 at 04:00 Folic Acid (Folic Acid) 1 mg DAILY PO ; Start 07/13/18 at 09:00 Hydroxyurea (Hydrea) 1,500 mg BID PO ; Start 07/13/18 at 10:00 PASCUAL VELÁZQUEZ MD Jul 13, 2018 09:12
[2018-07-13] MEDS: FOLIC ACID 1 MG TAB PO SCH (09:30)
[2018-07-13] MEDS ORDERED: HYDROXYUREA 500 MG CAP PO SCH (10:00)
[2018-07-13] MEDS: HYDROmorphONE 2 MG/ML SYG IV PRN ×2 (12:45→16:58)
[2018-07-13] MEDS: DIPHENHYDRAMINE 25 MG CAP PO PRN (12:53)
[2018-07-13 14:55] VITALS: BP 110/68; PULSE 78; RESP 18
[2018-07-13 20:00] VITALS: BP 119/72; PULSE 100; RESP 18
[2018-07-13] MEDS: HYDROmorphONE 4 MG TAB PO PRN (20:42)
[2018-07-14] MEDS: HYDROmorphONE 1 MG/ML SYG IV PRN ×2 (01:09→05:11)
[2018-07-14 02:00] VITALS: BP 116/67; PULSE 91; RESP 18
[2018-07-14] MEDS: SOD CHLORIDE 0.9% 1,000 ML IV SCH ×4 (05:12→21:04)
[2018-07-14 08:47] VITALS: BP 125/67; PULSE 73; RESP 19
--- NOTE | 2018-07-14 08:53 | PN ---
Date/Time of Note Date/Time of Note DATE: 07/14/18 TIME: 08:53 Assessment/Plan VTE Prophylaxis Risk score (from Ns)>0 risk: 1 SCD applied (from Ns): Yes Pharmacological prophylaxis: LMWH Lines/Catheters IV Catheter Type (from Nrsg): Peripheral IV Urinary Cath still in place: No Assessment/Plan Assessment/Plan 1. Acute sickle cell crisis- improving - Patient states he's feeling better and will probably be ready for discharge tomorrow - Pain management on board for pain control - Continue on Hydroxyurea - Patient states his treating physician as outpatient does not want any herrera sfusions to be given - denies any chest pain or shortness of breath 2. Leukocytosis- improving - most likely reactive since no signs of infection appreciated. 3. Disposition - Continue pain control and if remains stable, will d/c in am Result Diagram: 07/14/1813 07/14/1813 Results 24hrs Laboratory Tests Test 07/14/18 06:13 White Blood Count 11.9 #H Red Blood Count 2.02 L Hemoglobin 7.3 L Hematocrit 21.3 L Mean Corpuscular Volume 105.4 H Mean Corpuscular Hemoglobin 36.1 H Mean Corpuscular Hemoglobin Concent 34.3 Red Cell Distribution Width 20.7 H Platelet Count 601 H Mean Platelet Volume 10.1 Immature Granulocytes % 0.500 H Neutrophils % 48.3 Lymphocytes % 35.8 Monocytes % 14.0 H Eosinophils % 0.8 Basophils % 0.6 Nucleated Red Blood Cells % 17.5 H Immature Granulocytes # 0.060 H Neutrophils # 5.8 Lymphocytes # 4.3 H Monocytes # 1.7 H Eosinophils # 0.1 Basophils # 0.1 Nucleated Red Blood Cells # 2.1 H Sodium Level 139 Potassium Level 3.5 Chloride Level 107 Carbon Dioxide Level 27 Anion Gap 5 # Blood Urea Nitrogen 3 L Creatinine 0.47 L Est Glomerular Filtrat Rate mL/min > 60 Glucose Level 95 Calcium Level 9.4 Magnesium Level 1.9 Total Bilirubin 2.1 H Direct Bilirubin 0.00 Indirect Bilirubin 2.1 H Aspartate Amino Transf (AST/SGOT) 59 H Alanine Aminotransferase (ALT/SGPT) 51 Alkaline Phosphatase 206 H Total Protein 7.5 Albumin 3.6 Globulin 3.90 H Albumin/Globulin Ratio 0.92 Subjective 24 Hr Interval Summary Free Text/Dictation Patient states hes feeling better but still with generalized discomfort. Feels as if he will be ready for discharge tomorrow. Exam/Review of Systems Vital Signs Vitals Vital Signs Date Temp Pulse Resp B/P (MAP) Pulse Ox O2 O2 Flow FiO2 Time Delivery Rate 07/14/18 98.1 73 19 125/67 97 08:47 (86) 07/13/18 Room Air 14:55 Intake and Output 07/13/18 07/13/18 07/14/18 1515:00 23:00 07:00 IntakeIntake Total 1920 ml 1600 ml 1000 ml OutputOutput Total 1200 ml 600 ml 1400 ml BalanceBalance 720 ml 1000 ml -400 ml Exam General: Patient is a pleasant male currently lying in bed. no acute distress Neck: Supple Chest: Nontender Lungs: Clear to auscultation bilaterally no crackles rales or wheezing Heart: Normal S1-S2, Regular rhythm and rate. No murmur, S3, or S4 Abdomen: Soft , nontender, nondistended , bowel sounds are present. No guarding no rebound tenderness Extremities: Normal to inspection, no edema no cyanosis Medications Medications Current Medications IV Flush (NS 3 ml) 3 ml PER PROTOCOL IV ; Start 07/13/18 at 03:30 Ondansetron HCl (Zofran Tab) 4 mg Q6H PRN PO NAUSEA AND/OR VOMITING; Start 07/13/18 at 03:30 Acetaminophen (Tylenol Tab) 650 mg Q6H PRN PO PAIN LEVEL 1-3 OR FEVER; Start 07/13/18 at 03:30 Docusate Sodium (Colace) 100 mg Q12H PRN PO CONSTIPATION; Start 07/13/18 at 03:30 Bisacodyl (Dulcolax) 5 mg DAILY PRN PO CONSTIPATION; Start 07/13/18 at 03:30 Enoxaparin Sodium (Lovenox) 40 mg DAILY SC ; Start 07/13/18 at 09:00 Sodium Chloride 1,000 ml @ 125 mls/hr Q8H IV Last administered on 07/14/18at 05:12; Admin Dose 125 MLS/HR; Start 07/13/18 at 04:00 Folic Acid (Folic Acid) 1 mg DAILY PO Last administered on 07/13/18at 09:30; Admin Dose 1 MG; Start 07/13/18 at 09:00 Hydromorphone HCl (Dilaudid) 4 mg Q4H PRN PO MODERATE PAIN LEVEL 4-6 Last administered on 07/13/18at 20:42; Admin Dose 4 MG; Start 07/13/18 at 11:30 Diphenhydramine HCl (Benadryl) 25 mg Q6H PRN PO ITCHING Last administered on 07/13/18at 12:53; Admin Dose 25 MG; Start 07/13/18 at 11:30 Hydroxyurea (Hydrea) 1,500 mg DAILY PO ; Start 07/14/18 at 09:00 PASCUAL VELÁZQUEZ MD Jul 14, 2018 08:53
[2018-07-14] MEDS: ENOXAPARIN 40 MG/0.4 ML SYG SC SCH (09:00)
[2018-07-14] MEDS: HYDROmorphONE 4 MG TAB PO PRN ×4 (09:01→21:04)
[2018-07-14] MEDS: FOLIC ACID 1 MG TAB PO SCH (09:01)
[2018-07-14] MEDS: HYDROXYUREA 500 MG CAP PO SCH (10:15)
[2018-07-14 14:49] VITALS: BP 119/65; PULSE 104; RESP 18
[2018-07-14 20:00] VITALS: BP 117/63; PULSE 109; RESP 18
[2018-07-15] MEDS: HYDROmorphONE 4 MG TAB PO PRN ×6 (01:05→21:40)
[2018-07-15 02:00] VITALS: BP 109/57; PULSE 87; RESP 19
[2018-07-15] MEDS: SOD CHLORIDE 0.9% 1,000 ML IV SCH ×3 (05:40→21:40)
[2018-07-15 08:00] VITALS: BP 111/66; PULSE 84; RESP 18
[2018-07-15] MEDS: HYDROXYUREA 500 MG CAP PO SCH ×2 (09:00→11:49)
[2018-07-15] MEDS: ENOXAPARIN 40 MG/0.4 ML SYG SC SCH (09:00)
--- NOTE | 2018-07-15 09:03 | PN ---
Date/Time of Note Date/Time of Note DATE: 07/15/18 TIME: 09:03 Assessment/Plan VTE Prophylaxis Risk score (from Nsg)>0 risk: 1 SCD applied (from Nsg): Yes Pharmacological prophylaxis: LMWH Lines/Catheters IV Catheter Type (from Nrsg): Peripheral IV Urinary Cath still in place: No Assessment/Plan Assessment/Plan 1. Acute sickle cell crisis- improving - Leg pain improving with heating pad and warm blanket. pain controlled with PO medications - Will only check hgb if patient experiencing any symptoms. 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 Leukocytosis- improving - most likely reactive since no signs of infection appreciated. 3. Disposition - Continue pain control and supportive care. If feeling better, will d/c tomorrow Result Diagram: 07/14/1861207/14/18612 Subjective 24 Hr Interval Summary Free Text/Dictation Patient states lower extremities are improving with heating pad but still feeli ng "sickling pain." No acute overnight events. Exam/Review of Systems Vital Signs Vitals Vital Signs Date Temp Pulse Resp B/P (MAP) Pulse Ox O2 O2 Flow FiO2 Time Delivery Rate 07/15/18 98.8 84 18 111/66 94 08:00 (81) 07/13/18 Room Air 14:55 Intake and Output 07/14/18 07/14/18 07/15/18 1515:00 23:00 07:00 IntakeIntake Total 1720 ml 1240 ml 1150 ml OutputOutput Total 750 ml 500 ml 240 ml BalanceBalance 970 ml 740 ml 910 ml Exam General: Patient is a pleasant male currently lying in bed. no acute distress Neck: Supple Chest: Nontender Lungs: Clear to auscultation bilaterally no crackles rales or wheezing Heart: Normal S1-S2, Regular rhythm and rate. No murmur, S3, or S4 Abdomen: Soft , nontender, nondistended , bowel sounds are present. No guarding no rebound tenderness Extremities: Normal to inspection, no edema no cyanosis Medications Medications Current Medications IV Flush (NS 3 ml) 3 ml PER PROTOCOL IV ; Start 07/13/18 at 03:30 Ondansetron HCl (Zofran Tab) 4 mg Q6H PRN PO NAUSEA AND/OR VOMITING; Start 07/13/18 at 03:30 Acetaminophen (Tylenol Tab) 650 mg Q6H PRN PO PAIN LEVEL 1-3 OR FEVER; Start 07/13/18 at 03:30 Docusate Sodium (Colace) 100 mg Q12H PRN PO CONSTIPATION; Start 07/13/18 at 03:30 Bisacodyl (Dulcolax) 5 mg DAILY PRN PO CONSTIPATION; Start 07/13/18 at 03:30 Enoxaparin Sodium (Lovenox) 40 mg DAILY SC ; Start 07/13/18 at 09:00 Sodium Chloride 1,000 ml @ 125 mls/hr Q8H IV Last administered on 07/15/18at 05:40; Admin Dose 125 MLS/HR; Start 07/13/18 at 04:00 Folic Acid (Folic Acid) 1 mg DAILY PO Last administered on 07/14/18at 09:01; Admin Dose 1 MG; Start 07/13/18 at 09:00 Hydromorphone HCl (Dilaudid) 4 mg Q4H PRN PO MODERATE PAIN LEVEL 4-6 Last administered on 07/15/18at 05:39; Admin Dose 4 MG; Start 07/13/18 at 11:30 Diphenhydramine HCl (Benadryl) 25 mg Q6H PRN PO ITCHING Last administered on 07/13/18at 12:53; Admin Dose 25 MG; Start 07/13/18 at 11:30 Hydroxyurea (Hydrea) 1,500 mg DAILY PO Last administered on 07/14/18at 10:15; Admin Dose 1,500 MG; Start 07/14/18 at 09:00 PASCUAL VELÁZQUEZ MD Jul 15, 2018 09:03
[2018-07-15] MEDS: FOLIC ACID 1 MG TAB PO SCH (09:13)
[2018-07-15 14:00] VITALS: BP 119/70; PULSE 91; RESP 18
[2018-07-15 20:35] VITALS: BP 120/65; PULSE 92; RESP 18
[2018-07-16] MEDS: HYDROmorphONE 4 MG TAB PO PRN ×6 (01:42→22:19)
[2018-07-16 02:08] VITALS: BP 118/68; PULSE 102; RESP 18
[2018-07-16] MEDS: SOD CHLORIDE 0.9% 1,000 ML IV SCH ×3 (05:45→21:38)
[2018-07-16 08:23] VITALS: BP 114/68; PULSE 81; RESP 17
--- NOTE | 2018-07-16 08:58 | PN ---
Date/Time of Note Date/Time of Note DATE: 07/16/18 TIME: 08:58 Assessment/Plan VTE Prophylaxis Risk score (from Ns)>0 risk: 1 [place]CD applied [place] [facility] [place] SCD contraindicated: low risk/ambulating Pharmacological prophylaxis: NA/contraindicated Pharm contraindication: blood coag disorder Lines/Catheters IV [facility] Peripheral IV Urinary Cath still in place: No Assessment/Plan Assessment/Plan 1. Acute sickle cell crisis- stable - Patient with pain while ambulating but states sickling pain has improved since admission - Having difficulty sleeping due to pain and requested one time dose of Dilaudid IV prior to sleeping - Will only check hgb if patient experiencing any symptoms. 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 Leukocytosis- improving - most likely reactive since no signs of infection appreciated. 3. Disposition - Continue monitoring for improvement in LE pain. Patient is high risk for bounce back and will need to make sure completely stable prior to discharge Result Diagram: 07/14/1813 07/14/1813 Subjective 24 Hr Interval Summary Free Text/Dictation Patient states he's still experiencing discomfort in lower extremities especially with ambulation. Feels as if the pain is worse at night and requesting a one time dose of IV at night prior to sleeping. No acute overnight events. Exam/Review of Systems Vital Signs Vitals Vital Signs Date Temp Pulse Resp B/P (MAP) Pulse Ox O2 O2 Flow FiO2 Time Delivery Rate 07/16/18 97.6 81 17 114/68 100 08:23 (83) 07/13/18 Room Air 14:55 Intake and Output 07/15/18 07/15/18 07/16/18 1515:00 23:00 07:00 IntakeIntake Total 1590 ml 1380 ml 1720 ml OutputOutput Total 1400 ml 400 ml 1375 ml BalanceBalance 190 ml 980 ml 345 ml Exam General: Patient is a pleasant male currently lying in bed. mild distress secondary to pain in legs Neck: Supple Chest: Nontender Lungs: Clear to auscultation bilaterally no crackles rales or wheezing Heart: Normal S1-S2, Regular rhythm and rate. No murmur, S3, or S4 Abdomen: Soft , nontender, nondistended , bowel sounds are present. No guarding no rebound tenderness Extremities: Normal to inspection, no edema no cyanosis Medications Medications Current Medications IV Flush (NS 3 ml) 3 ml PER PROTOCOL IV ; Start 07/13/18 at 03:30 Ondansetron HCl (Zofran Tab) 4 mg Q6H PRN PO NAUSEA AND/OR VOMITING; Start 07/13/18 at 03:30 Acetaminophen (Tylenol Tab) 650 mg Q6H PRN PO PAIN LEVEL 1-3 OR FEVER; Start 07/13/18 at 03:30 Docusate Sodium (Colace) 100 mg Q12H PRN PO CONSTIPATION; Start 07/13/18 at 03:30 Bisacodyl (Dulcolax) 5 mg DAILY PRN PO CONSTIPATION; Start 07/13/18 at 03:30 Enoxaparin Sodium (Lovenox) 40 mg DAILY SC ; Start 07/13/18 at 09:00 Sodium Chloride 1,000 ml @ 125 mls/hr Q8H IV Last administered on 07/16/18at 05:45; Admin Dose 125 MLS/HR; Start 07/13/18 at 04:00 Folic Acid (Folic Acid) 1 mg DAILY PO Last administered on 07/15/18at 09:13; Admin Dose 1 MG; Start 07/13/18 at 09:00 Hydromorphone HCl (Dilaudid) 4 mg Q4H PRN PO MODERATE PAIN LEVEL 4-6 Last administered on 07/16/18at 05:42; Admin Dose 4 MG; Start 07/13/18 at 11:30 Diphenhydramine HCl (Benadryl) 25 mg Q6H PRN PO ITCHING Last administered on 07/13/18at 12:53; Admin Dose 25 MG; Start 07/13/18 at 11:30 Hydroxyurea (Hydrea) 1,500 mg DAILY PO Last administered on 07/15/18at 11:49; Admin Dose 1,500 MG; Start 07/14/18 at 09:00 PASCUAL VELÁZQUEZ MD Jul 16, 2018 08:58
[2018-07-16] MEDS: ENOXAPARIN 40 MG/0.4 ML SYG SC SCH (09:00)
[2018-07-16] MEDS: FOLIC ACID 1 MG TAB PO SCH (09:29)
[2018-07-16] MEDS: HYDROXYUREA 500 MG CAP PO SCH (09:29)
[2018-07-16] MEDS ORDERED: HYDROmorphONE 4 MG TAB PO PRN (11:30)
[2018-07-16 15:48] VITALS: BP 106/60; PULSE 84; RESP 17
[2018-07-16] MEDS ORDERED: HYDROmorphONE 1 MG/ML SYG IV PRN (19:30)
[2018-07-16 20:40] VITALS: BP 110/66; PULSE 102; RESP 18
[2018-07-17] MEDS: DIPHENHYDRAMINE 25 MG CAP PO PRN
[2018-07-17 02:20] VITALS: BP 110/67; PULSE 75; RESP 18
[2018-07-17] MEDS: HYDROmorphONE 4 MG TAB PO PRN ×4 (02:52→14:53)
[2018-07-17] MEDS: SOD CHLORIDE 0.9% 1,000 ML IV SCH (06:15)
[2018-07-17 08:32] VITALS: BP 119/69; PULSE 79; RESP 17
[2018-07-17] MEDS: HYDROXYUREA 500 MG CAP PO SCH (08:48)
[2018-07-17] MEDS: FOLIC ACID 1 MG TAB PO SCH (08:49)
[2018-07-17] MEDS: ENOXAPARIN 40 MG/0.4 ML SYG SC SCH (08:52)
--- NOTE | 2018-07-17 11:19 | CONS ---
Date/Time of Note Date/Time of Note DATE: 07/17/18 TIME: Assessment/Plan Assessment/Plan Result Diagram: 07/14/18 0613 07/14/18 0613 Consultation Date/Type/Reason Admit Date/Time Jul 13, 2018 at 05:05 Initial Consult Date Exam/Review of Systems Vital Signs Vitals Vital Signs Date Temp Pulse Resp B/P (MAP) Pulse Ox O2 O2 Flow FiO2 Time Delivery Rate 07/17/18 98.1 79 17 119/69 98 08:32 (86) 07/16/18 Room Air 15:48 Intake and Output 07/16/18 07/16/18 07/17/18 1515:00 23:00 07:00 IntakeIntake Total 1000 ml 3040 ml 2000 ml OutputOutput Total 1000 ml 1900 ml BalanceBalance 1000 ml 2040 ml 100 ml Medications Medications Current Medications IV Flush (NS 3 ml) 3 ml PER PROTOCOL IV ; Start 07/13/18 at 03:30 Ondansetron HCl (Zofran Tab) 4 mg Q6H PRN PO NAUSEA AND/OR VOMITING; Start 07/13/18 at 03:30 Acetaminophen (Tylenol Tab) 650 mg Q6H PRN PO PAIN LEVEL 1-3 OR FEVER; Start 07/13/18 at 03:30 Docusate Sodium (Colace) 100 mg Q12H PRN PO CONSTIPATION Last administered on 07/17/18at 08:54; Admin Dose 100 MG; Start 07/13/18 at 03:30 Bisacodyl (Dulcolax) 5 mg DAILY PRN PO CONSTIPATION Last administered on 07/17at 08:54; Admin Dose 5 MG; Start 07/13/18 at 03:30 Enoxaparin Sodium (Lovenox) 40 mg DAILY SC ; Start 07/13/18 at 09:00 Sodium Chloride 1,000 ml @ 125 mls/hr Q8H IV Last administered on 07/17/18at 06:15; Admin Dose 125 MLS/HR; Start 07/13/18 at 04:00 Folic Acid (Folic Acid) 1 mg DAILY PO Last administered on 07/17/18at 08:49; Admin Dose 1 MG; Start 07/13/18 at 09:00 Hydromorphone HCl (Dilaudid) 4 mg Q4H PRN PO MODERATE PAIN LEVEL 4-6 Last administered on 07/17/18 10:55; Admin Dose 4 MG; Start 07/13/18 at 11:30 Diphenhydramine HCl (Benadryl) 25 mg Q6H PRN PO ITCHING Last administered on 07/17/18at 00:00; Admin Dose 25 MG; Start 07/13/18 at 11:30 Hydroxyurea (Hydrea) 1,500 mg DAILY PO Last administered on 07/17/18at 08:48; Admin Dose 1,500 MG; Start 07/14/18 at 09:00 Hydromorphone HCl (Dilaudid) 1 mg QHS PRN IV pain Last administered on 07/16/18at 23:26; Admin Dose 1 MG; Start 07/16/18 at 19:30 QUYEN RIZVI Jul 17, 2018 11:19
[2018-07-17 14:54] VITALS: BP 125/70; PULSE 76; RESP 17
--- NOTE | 2018-07-17 15:30 | PDOCDIS ---
Discharge Instructions CONDITION [id number] Patient Condition: [id number] Stable HOME CARE INSTRUCTIONS: [id number] Special Diet: [id number] regular ACTIVITY: [id number] Activity Restrictions: [id number] Slowly Increase Activity Rest between Activity Avoid heavy lifting FOLLOW UP/APPOINTMENTS Follow-up Plan Please take your medications as prescribed, see your doctor in the clinic in the next 1 week. LACEY FELICIANO. Jul 17, 2018 15:30
--- NOTE | 2018-07-17 15:34 | DS ---
Date/Time of Note Date/Time of Note DATE: 07/17/18 TIME: 15:32 Discharge Summary Admission/Discharge Info Admit Date/Time Jul 13, 2018 at 05:05 Discharge Date/Time Patient Condition: Stable Hx of Present Illness 23 yo male with a history of sickle cell crisis who presents to the emergency department complaining of left lower leg pain. Patient reports that he started experiencing pain yesterday prior to going to work. Than when he was at work he started experiencing severe pain in his left leg will his generalized body pain and it was difficult for him to work. He has similar symptoms in the past when he has sickle cell crisis. He thinks his symptoms may have come about secondary to change in the weather. He took his home Dilaudid that was prescribed to him by sickle cell doctor but that did not help his pain. He has not been around any sick contacts. Denies any fevers. He is scheduled to see his sickle cell doctor at [facility] later today. He denies any chest pain or shortness of breath. Hospital Course So patient was admitted, seen briefly by pain management during this hospital stay. His hemoglobins were found to be in the high 7 low 8 range, but he had no signs of any bleeding. Regarding his sickle cell crisis he was placed on pain medications, as well as folic acid and hydroxyurea. Patient's pain symptoms slowly improved. He was able to ambulate, tolerated p.o. diet. His vital signs remained stable on the day of discharge. Patient will be discharged home today in improved condition. He will continue his Dilaudid pills at home every 4 hours as needed for pain, as well as folic acid and hydroxyurea. See below for full list of discharge medications. Home Meds Reported Medications Hydromorphone Hcl (Dilaudid) 4 Mg Tab, 4 MG PO PRN for PAIN LEVEL 4-6 07/13/18 Hydroxyurea* (Hydroxyurea*) 500 Mg Capsule, 1500 MG PO BID, CAP 06/30/18 Folic Acid* (Folic Acid*) 1 Mg Tablet, 1 MG PO DAILY, TAB 06/30/18 Follow-up Plan Please take your medications as prescribed, see your doctor in the clinic in the next 1 week. Primary Care Provider Care Physician No Primary Time spent on discharge: > 30 minutes LACEY FELICIANO Jul 17, 2018 15:34
[2018-07-17 20:00] VITALS: BP 124/76; PULSE 105; RESP 18
== END 2018-07-17 20:35 | disposition home or self-care (01) | DRG 812 ==
LOC: E/R 22:32 → PP2 07-13 03:14 → OBSVTOIN 07-13 05:05
PROVIDERS: ADMIT Family Medicine; ATTEND Hospitalist
DX: D57.00 Hb-SS disease with crisis, unspecified (principal)
CPT/HCPCS: 71045; 80048; 80053; 83615; 83735; 85025; 85045; 86850; 86860; 86870; 86880; 86900; 86901; 86970; 86971; 96374; 96375; G0378; J1170; J1650; J2405; J7030

== ENCOUNTER 2018-08-05 12:07 | Emergency (ER) | payer OTHER ==
[~2018-08-05] VITALS: Ht 175.3 cm; Wt 66.6 kg
[2018-08-05 12:10] VITALS: BP 125/90; PULSE 94; RESP 18; Ht 175.3 cm; Wt 66.6 kg
--- NOTE | 2018-08-05 12:23 | ERD ---
ER Documentation Chief Complaint Chief Complaint rectal pain & constipation x2 days, possible hemmoroids HPI 23-year-old male, with history of sickle cell disease, presents the emergency de partment, complaining of 2 days with rectal discomfort and a rectal lump. He denies diarrhea or constipation, no rectal bleeding, no abdominal pain, no fever, no chills. ROS All systems reviewed and are negative except as per history of present illness. Medications Home Meds Active Scripts Ibuprofen* (Motrin*) 400 Mg Tab, 400 MG PO Q8, #15 TAB Prov:PAIGE GALDAMEZ MD 08/05/18 Triamcinolone Acetonide (Triamcinolone Acetonide) 0.5% - 15 Gm Oint..gm., 1 APPLIC TOP BID for 7 Days, #1 TUB Prov:PAIGE GALADMEZ MD 08/05/18 Reported Medications Hydromorphone Hcl (Dilaudid) 4 Mg Tab, 4 MG PO PRN for PAIN LEVEL 4-6 07/13/18 Hydroxyurea* (Hydroxyurea*) 500 Mg Capsule, 1500 MG PO BID, CAP 06/30/18 Folic Acid* (Folic Acid*) 1 Mg Tablet, 1 MG PO DAILY, TAB 06/30/18 Allergies Allergies: Coded Allergies: No Known Allergy (Unverified , 06/30/18) PMhx/Soc Medical and Surgical Hx: pt denies Surgical Hx History of Surgery: No Anesthesia Reaction: No Hx Neurological Disorder: No Hx Respiratory Disorders: No Hx Cardiac Disorders: No Hx Psychiatric Problems: No Hx Miscellaneous Medical Probl: Yes (sickle cell) Hx Alcohol Use: Yes (OCC) Hx Substance Use: Yes (marijuana) Hx Tobacco Use: No Smoking Status: Never smoker FmHx Family History: No diabetes, No coronary disease Physical Exam Vitals Vital Signs Date Temp Pulse Resp B/P (MAP) Pulse Ox O2 O2 Flow FiO2 Time Delivery Rate 08/05/18 97.8 94 18 125/90 96 12:10 (102) Physical Exam Const: No acute distress Head: Atraumatic Eyes: Normal Conjunctiva ENT: Normal External Ears, Nose and Mouth. Neck: Full range of motion. No meningismus. Resp: Clear to auscultation bilaterally Cardio: Regular rate and rhythm, no murmurs Abd: Soft, non tender, non distended. Normal bowel sounds Rectal: 1 cm external hemorrhoid without evidence of thrombosis. Skin: No petechiae or rashes Back: No midline or flank tenderness Ext: No cyanosis, or edema Neur: Awake and alert Psych: Normal Mood and Affect Procedures/MDM Differential diagnosis include but not limited to: Internal hemorrhoid, external hemorrhoid, skin tag, bowel Obstruction, ileus, fecal impaction. Low suspicion for acute abdomen. Physical examination and clinical presentation consistent most likely with external hemorrhoid. During the ED course the patient remained stable, no new complaints. Treatment options, results and clinical impression discussed with the patient who agrees with management. The patient is stable to be treated outpatient and will be discharged home, some side effects of prescribed medications were reviewed. The patient was instructed to follow up with the primary care provider in the next 48h. If symptoms persist, worsen or new symptoms develop, then patient should return to the ED immediately. Instructions explained and given directly by me to the patient with acknowledgment and demonstrated understanding. Disclaimer: Inadvertent spelling and grammatical errors are likely due to EHR/dictation software use and do not reflect on the overall quality of patient care. Also, please note that the electronic time recorded on this note does not necessarily reflect the actual time of the patient encounter. Departure Diagnosis: Primary Impression: Inflamed external hemorrhoid Condition: Stable Additional Instructions: Thank you very much for allowing us to participate in your care. Your health and safety is our top priority at [facility]. Call your primary care doctor TOMORROW for an appointment during the next 2-4 days and bring all the information and medications prescribed. Have prescriptions filled and follow precisely the directions on the label. If the symptoms get worse and your provider is unavailable, return to the Emergency Department immediately. PAIGE GALDAMEZ MD Aug 05, 2018 12:23
[2018-08-05] MEDS ORDERED: TRIA15OI9 TOP (12:35)
[2018-08-05] MEDS ORDERED: IBUP-1561 PO (12:35)
== END 2018-08-05 13:05 | disposition home or self-care (01) ==
LOC: FTE 12:07
DX: K64.4 Residual hemorrhoidal skin tags (principal)
CPT/HCPCS: 99283

== ENCOUNTER 2018-10-07 10:25 | Emergency (ER) | payer OTHER ==
[~2018-10-07] VITALS: Wt 10.0 kg
[~2018-10-07 10:25] MED LIST changes: +IBUP-1561 PO; +TRIA15OI9 TOP
[2018-10-07] MEDS ORDERED: SOD CHLORIDE 0.9% 1,000 ML IV STA (12:47)
[2018-10-07] MEDS ORDERED: ONDANSETRON 4 MG INJ IV STA (12:47)
[2018-10-07] MEDS ORDERED: HYDROmorphONE 1 MG/ML SYG IV STA ×3 (12:47→16:21)
[2018-10-07] MEDS ORDERED: DIPHENHYDRAMINE 50 MG INJ IV ONE ×3 (13:00→16:30)
--- NOTE | 2018-10-07 13:06 | ERD ---
ER Documentation Chief Complaint Chief Complaint HX OF SICKLE CELL, HAS BODY PAINS HPI This 23-year-old male with a history of sickle cell disease who is here with a sickle cell crisis. He complains of onset of leg pain yesterday that progressed into his arms which is his typical pattern of arm and leg pain which is sharp and nonradiating somewhat worse with movement. Patient is not sure why crisis. Denies any recent illness fevers cough. He has no chest pain but does have some off-and-on abdominal pain at times. He said this is also typical ROS All systems reviewed and are negative except as per history of present illness. Medications Home Meds Reported Medications Hydroxyurea* (Hydroxyurea*) 500 Mg Capsule, 500 MG PO DAILY, CAP 10/07/18 Folic Acid* (Folic Acid*) 1 Mg Tablet, 1 MG PO DAILY, TAB 06/30/18 Discontinued Reported Medications Hydromorphone Hcl (Dilaudid) 4 Mg Tab, 4 MG PO PRN for PAIN LEVEL 4-6 07/13/18 Hydroxyurea* (Hydroxyurea*) 500 Mg Capsule, 1500 MG PO BID, CAP 06/30/18 Discontinued Scripts Ibuprofen* (Motrin*) 400 Mg Tab, 400 MG PO Q8, #15 TAB Prov:PAIGE GALDAMEZ MD 08/05/18 Triamcinolone Acetonide (Triamcinolone Acetonide) 0.5% - 15 Gm Oint..gm., 1 APPLIC TOP BID for 7 Days, #1 TUB Prov:PAIGE GALDAMEZ MD 08/05/18 Allergies Allergies: Coded Allergies: No Known Allergy (Unverified , 10/07/18) PMhx/Soc History of Surgery: No Anesthesia Reaction: No Hx Neurological Disorder: No Hx Respiratory Disorders: No Hx Cardiac Disorders: No Hx Psychiatric Problems: No Hx Miscellaneous Medical Probl: Yes (sickle cell) Hx Alcohol Use: Yes (OCC) Hx Substance Use: Yes (marijuana) Hx Tobacco Use: No FmHx Family History: No coronary disease Physical Exam Vitals Vital Signs Date Temp Pulse Resp B/P (MAP) Pulse Ox O2 O2 Flow FiO2 Time Delivery Rate 10/07/18 Nasal 2 13:09 Cannula 10/07/18 98.8 99 18 132/86 98 10:29 (101) Physical Exam Const: Well-developed, well-nourished Head: Atraumatic, normocephalic Eyes: Normal Conjunctiva, PERRLA, EOMI, normal sclera, no nystagmus ENT: Normal External Ears, Nose and Mouth, moist mucus membranes. Neck: Full range of motion. No meningismus, no lymphadenopathy. Resp: Clear to auscultation bilaterally, no wheezing, rhonchi, rales Cardio: Regular rate and rhythm, no murmurs, S1 S2 present Abd: Soft, non tender x 4, non distended. Normal bowel sounds, no guarding or rebound, no pulsitile abdominal masses or bruits Skin: No petechiae or rashes, no ecchymosis , no maculopapular rash Back: No midline or flank tenderness Ext: No cyanosis, or edema, FROM x 4, normal inspection, neurovascularly intact x 4 Neur: Awake and alert, STR 5/5 x 4, sensation intact x 4, no focal findings, cerebellum intact Psych: Normal Mood and Affect Result Diagram: 10/07/18 1303 10/07/18 1303 Results 24 hrs Laboratory Tests Test 10/07/18 13:03 White Blood Count 16.7 10^3/ul Red Blood Count 2.58 10^6/ul Hemoglobin 8.9 g/dl Hematocrit 24.8 % Mean Corpuscular Volume 96.1 fl Mean Corpuscular Hemoglobin 34.5 pg Mean Corpuscular Hemoglobin Concent 35.9 g/dl Red Cell Distribution Width 16.0 % Platelet Count 326 10^3/UL Mean Platelet Volume 10.3 fl Immature Granulocytes % 2.200 % Neutrophils % 76.9 % Lymphocytes % 11.5 % Monocytes % 8.7 % Eosinophils % 0.1 % Basophils % 0.6 % Nucleated Red Blood Cells % 5.0 /100WBC Immature Granulocytes # 0.370 10^3/ul Neutrophils # 12.8 10^3/ul Lymphocytes # 1.9 10^3/ul Monocytes # 1.5 10^3/ul Eosinophils # 0.0 10^3/ul Basophils # 0.1 10^3/ul Nucleated Red Blood Cells # 0.8 10^3/ul Absolute Reticulocyte Count 0.351 X10^6 Percent Reticulocyte Count 13.5 % Sodium Level 139 mmol/L Potassium Level 4.6 mmol/L Chloride Level 103 mmol/L Carbon Dioxide Level 22 mmol/L Anion Gap 14 Blood Urea Nitrogen 9 mg/dl Creatinine 0.47 mg/dl Est Glomerular Filtrat Rate mL/min > 60 mL/min Glucose Level 94 mg/dl Calcium Level 9.9 mg/dl Total Bilirubin 4.0 mg/dl Direct Bilirubin 0.00 mg/dl Indirect Bilirubin 4.0 mg/dl Aspartate Amino Transf (AST/SGOT) 105 IU/L Alanine Aminotransferase (ALT/SGPT) 92 IU/L Alkaline Phosphatase 202 IU/L Total Protein 8.9 g/dl Albumin 4.8 g/dl Globulin 4.10 g/dl Albumin/Globulin Ratio 1.17 Lipase 68 U/L Current Medications Medications Dose Sig/Pablo Start Time Status Last (Trade) Ordered Route PRN Stop Time Admin Dose Reason Admin Sodium 1,000 ml @ Q1H STAT 10/07/18 DC 10/07/18 Chloride 1,000 mls/hr IV 12:47 10/07/18 13:00 13:46 1 mg ONCE STAT 10/07/18 DC 10/07/18 Hydromorphone IV 12:47 10/07/18 13:00 HCl 12:49 (Dilaudid) Ondansetron 4 mg ONCE STAT 10/07/18 DC 10/07/18 HCl (Zofran IV 12:47 10/07/18 13:00 Inj) 12:49 25 mg ONCE ONCE 10/07/18 DC 10/07/18 Diphenhydrami IV 13:00 10/07/18 13:00 ne HCl 13:01 (Benadryl) 2 mg ONCE STAT 10/07/18 DC 10/07/18 Hydromorphone IV 13:38 10/07/18 13:47 HCl 13:39 (Dilaudid) 25 mg ONCE ONCE 10/07/18 DC 10/07/18 Diphenhydrami IV 14:00 10/07/18 13:47 ne HCl 14:01 (Benadryl) Procedures/MDM Patient's labs are relatively stable and is feeling better after fluids oxygen and pain medication. He is resting for several hours with no complaints. He is asking for 1 more Dilaudid before he leaves. We discussed him taking his home p.o. pain medication and observing himself at home with plenty of fluids and rest, he was agreeable to this plan Departure Diagnosis: Primary Impression: Sickle cell crisis Condition: Stable CON COPELAND DO Oct 07, 2018 13:06
[2018-10-07] MEDS ORDERED: HYDR500C3 PO (16:15)
[2018-10-07] MEDS ORDERED: BEN25 PO (16:24)
[2018-10-07] MEDS ORDERED: ONDA4TAB14 PO (16:24)
[2018-10-07 17:02] VITALS: BP 124/82; PULSE 84; RESP 16
== END 2018-10-07 17:03 | disposition home or self-care (01) ==
LOC: E/R 10:25
DX: D57.00 Hb-SS disease with crisis, unspecified (principal)
CPT/HCPCS: 80053; 83690; 85025; 85045; 96361; 96374; 96375; 96376; J1170; J1200; J2405; J7030; Z7502

== ENCOUNTER 2018-10-10 16:44 | Inpatient (IN) | payer OTHER ==
[~2018-10-10] VITALS: Ht 175.3 cm; Wt 67.9 kg
[~2018-10-10 16:44] MED LIST changes: +BEN25 PO; -HYDR4TAB PO; -IBUP-1561 PO; +ONDA4TAB14 PO; -TRIA15OI9 TOP
[2018-10-10 16:56] VITALS: Ht 175.3 cm; Wt 67.9 kg
[2018-10-10] MEDS ORDERED: SODIUM CHLORIDE 0.9% 1L BAG IV* STA (21:37)
[2018-10-10] MEDS ORDERED: HYDROmorphONE 2 MG/ML SYG IV STA (21:37)
[2018-10-10] MEDS ORDERED: ONDANSETRON 4 MG INJ IV STA (21:37)
--- NOTE | 2018-10-10 21:45 | ERD ---
ER Documentation Chief Complaint Chief Complaint LEFT ARM AND LEG PAIN X 2 DAYS HPI 23-year-old man with history of sickle cell crisis and pain episodes presents with continued body aches and left thigh pain. He was here a few days ago and discharged after a dose of opioid analgesics administered in the ER but developed a fever today. He states he has been feeling weak for most of the day as well. He denies cough, no sore throat, no headache or neck pain, no chest pain or shortness of breath, no vomiting or diarrhea, no complaints of abdominal pain. ROS All systems reviewed and are negative except as per history of present illness. Medications Home Meds Active Scripts Diphenhydramine Hcl* (Benadryl*) 25 Mg Cap, 25 MG PO Q6 PRN for ITCHING/RASH, #30 TAB Prov:CON COPELAND DO 10/07/18 Reported Medications Escitalopram Oxalate* (Escitalopram Oxalate*) 10 Mg Tablet, 10 MG PO DAILY for 30 Days, #30 10/10/18 Diphenhydramine Hcl (Banophen) 25 Mg Capsule, 25 MG PO, #30 10/10/18 Hydroxyurea* (Hydroxyurea*) 500 Mg Capsule, 500 MG PO DAILY, CAP 10/07/18 Folic Acid* (Folic Acid*) 1 Mg Tablet, 1 MG PO DAILY, TAB 06/30/18 Discontinued Reported Medications Hydromorphone Hcl (Dilaudid) 4 Mg Tab, 4 MG PO PRN for PAIN LEVEL 4-6 07/13/18 Hydroxyurea* (Hydroxyurea*) 500 Mg Capsule, 1500 MG PO BID, CAP 06/30/18 Discontinued Scripts Ondansetron (Ondansetron Odt) 4 Mg Tab.rapdis, 4 MG PO Q6H PRN for NAUSEA AND/OR VOMITING, #10 TAB Prov:CON COPELAND DO 10/07/18 Ibuprofen* (Motrin*) 400 Mg Tab, 400 MG PO Q8, #15 TAB Prov:PAIGE GALDAMEZ MD 08/05/18 Triamcinolone Acetonide (Triamcinolone Acetonide) 0.5% - 15 Gm Oint..gm., 1 APPLIC TOP BID for 7 Days, #1 TUB Prov:PAIGE GALDAMEZ MD 08/05/18 Allergies Allergies: Coded Allergies: No Known Allergy (Unverified , 10/10/18) PMhx/Soc Sickle cell disease History of Surgery: No Anesthesia Reaction: No Hx Neurological Disorder: No Hx Respiratory Disorders: No Hx Cardiac Disorders: No Hx Psychiatric Problems: No Hx Miscellaneous Medical Probl: Yes (sickle cell) Hx Alcohol Use: Yes (OCC) Hx Substance Use: Yes (marijuana) Hx Tobacco Use: No FmHx Family History: No diabetes Physical Exam Vitals Vital Signs Date Temp Pulse Resp B/P (MAP) Pulse Ox O2 O2 Flow FiO2 Time Delivery Rate 10/10/18 98.1 85 20 127/74 95 Room Air 22:01 (91) 10/10/18 38.4 21:53 10/10/18 101.1 105 20 131/74 95 16:56 (93) Physical Exam GENERAL: Well-developed, well-nourished, appears dehydrated, febrile, nontoxic in appearance HEENT: Dry mucous membranes, pink conjunctiva, no cervical spine tenderness or step-off deformities, no goiter, positive icterus, extraocular movements intact without pain. No submandibular induration, and no pharyngeal erythema NEURO: Alert and oriented 3, cranial nerves II through XII intact bilaterally, pupils equal round reactive to light, no focal deficits or facial asymmetry, sensation intact distally Strength 5/5 in upper and lower extremities bilaterally CARDIAC: Tachycardic and regular, no murmurs rubs or gallops LUNGS: Clear bilaterally no wheezing crackles or stridor ABDOMEN: Soft nontender, no guarding, no rigidity, no rebound, no psoas sign no obturator sign. SKIN: Warm and dry to touch, no abrasions, contusions, or hematomas, no lacerations, no ecchymosis, no target lesions, and without ulcers EXTREMITIES: No clubbing cyanosis or edema, calves are bilaterally symmetrical, no Homans sign, no popliteal cord sign. Distal pulses equal and bilateral PSYCH: Normal affect without agitation or irritability Result Diagram: 10/10/18214810/10/182148 Results 24 hrs Laboratory Tests Test 10/10/18 21:48 10/10/18 21:49 POC Venous Lactate 0.9 mmol/L White Blood Count 15.4 10^3/ul Red Blood Count 2.59 10^6/ul Hemoglobin 9.0 g/dl Hematocrit 25.1 % Mean Corpuscular Volume 96.9 fl Mean Corpuscular Hemoglobin 34.7 pg Mean Corpuscular Hemoglobin Concent 35.9 g/dl Red Cell Distribution Width 16.6 % Platelet Count 415 10^3/UL Mean Platelet Volume 11.1 fl Immature Granulocytes % 0.700 % Neutrophils % % Segmented Neutrophils % (Manual) 71 % Band Neutrophils % (Manual) 11 % Lymphocytes % % Lymphocytes % (Manual) 11 % Reactive Lymphocytes % (Manual) 1 % Monocytes % % Monocytes % (Manual) 6 % Eosinophils % % Basophils % % Nucleated Red Blood Cells % 6 % Immature Granulocytes # 0.110 10^3/ul Neutrophils # 10^3/ul Neutrophils # (Manual) 11.2 10^3/ul Band Neutrophils # 1.6 10^3/ul Lymphocytes (Manual) 1.6 10^3/ul Lymphocytes # 10^3/ul Reactive Lymphocytes # 0.1 10^3/ul Monocytes # 10^3/ul Monocytes # (Manual) 0.9 10^3/ul Eosinophils # 10^3/ul Basophils # 10^3/ul Nucleated Red Blood Cells # 10^3/ul Platelet Estimate NORMAL Polychromasia 2+ Poikilocytosis 1+ Anisocytosis 3+ Macrocytosis 3+ Sickle Cells 1+ Target Cells 3+ Erythrocyte Sedimentation Rate 72 mm/Hr Absolute Reticulocyte Count 0.370 X10^6 Percent Reticulocyte Count 14.2 % Prothrombin Time 13.6 Sec Prothrombin Time Ratio 1.1 INR International Normalized Ratio 1.03 Activated Partial Thromboplast Time 28.3 Sec Sodium Level 141 mmol/L Potassium Level 3.8 mmol/L Chloride Level 106 mmol/L Carbon Dioxide Level 23 mmol/L Anion Gap 12 Blood Urea Nitrogen 10 mg/dl Creatinine 0.49 mg/dl Est Glomerular Filtrat Rate mL/min > 60 mL/min Glucose Level 97 mg/dl Calcium Level 10.3 mg/dl Total Bilirubin 7.9 mg/dl Direct Bilirubin 2.40 mg/dl Indirect Bilirubin 5.5 mg/dl Aspartate Amino Transf (AST/SGOT) 175 IU/L Alanine Aminotransferase (ALT/SGPT) 151 IU/L Alkaline Phosphatase 320 IU/L Creatine Kinase 41 IU/L Troponin I < 0.012 ng/ml C-Reactive Protein 6.5 mg/dl Total Protein 9.8 g/dl Albumin 4.8 g/dl Globulin 5.00 g/dl Albumin/Globulin Ratio 0.96 Lipase 25 U/L Current Medications Medications Dose Sig/Pablo Start Time Status Last (Trade) Ordered Route PRN Stop Time Admin Dose Reason Admin Sodium 2,040 ml BOLUS OVER 2 10/10/18 DC 10/10/18 Chloride HOURS STAT 21:37 10/10/18 21:55 (NS) IV* 21:43 Ibuprofen 600 mg ONCE ONCE 10/10/18 DC 10/10/18 (Motrin) PO 22:00 10/10/18 21:53 22:01 Ceftriaxone 50 ml @ ONCE ONCE 10/10/18 DC 10/10/18 Sodium 100 mls/hr IVPB 22:00 10/10/18 21:53 22:29 2 mg ONCE STAT 10/10/18 DC 10/10/18 Hydromorphone IV 21:37 10/10/18 21:53 HCl 21:43 (Dilaudid) Ondansetron 4 mg ONCE STAT 10/10/18 DC 10/10/18 HCl (Zofran IV 21:37 10/10/18 21:53 Inj) 21:43 Sodium 1,000 ml @ Q10H IV 10/10/18 Chloride 100 mls/hr 23:16 IV Flush 3 ml PER 10/10/18 (NS 3 ml) PROTOCOL IV 23:30 Ondansetron 4 mg Q6H PRN 10/10/18 HCl (Zofran IV 23:30 Inj) NAUSEA/VOMITI NG 650 mg Q6H PRN 10/10/18 Acetaminophen PO .PAIN 1-3 23:30 (Tylenol OR TEMP Tab) 1 tab Q6H PRN 10/10/18 Acetaminophen PO .MOD PAIN 23:30 / 4-6 Hydrocodone Bitart ([place] (5/325)) 2 tab Q6H PRN 10/10/18 Acetaminophen PO .SEVERE 23:30 / PAIN 7-10 Hydrocodone Bitart ([place] (5/325)) Albuterol/ 3 ml Q2H RESP 10/10/18 Ipratropium THERAPY PRN 23:30 (Duoneb) HHN SHORTNESS OF BREATH 25 mg Q6 PRN PO 10/10/18 Diphenhydrami ITCHING/RASH 23:30 ne HCl (Benadryl) Folic Acid 1 mg DAILY PO 10/11/18 (Folic Acid) 09:00 Hydroxyurea 500 mg DAILY PO 10/11/18 (Hydrea) 09:00 Procedures/MDM IV line was established patient was placed on cardiac monitor technician rhythm strip re vealed a tachycardia at 110 bpm with upright P and T waves. Patient was febrile, blood and urine cultures have been ordered results are pending I will follow-up. Code sepsis was called as patient met Sirs criteria with fever and tachycardia I administered 2 L normal saline IV, ibuprofen 600 mg p.o. for fever, hydromorphone 2 mg IV, Zofran 4 mg IV, and ceftriaxone 1 g IV Influenza a and B swabs were negative. ESR and CRP levels were both elevated concerning for bacterial infection. Chest X-ray 1V Interpreted by me: Soft Tissue: No acute abnormalities Bones: No acute abnormalities Mediastinum/Cardiac Silhouette/Lungs: No acute abnormalities Gallbladder ultrasound was performed revealing gallstones, no acute cholecystitis or choledocholithiasis was noted. CBC revealed a leukocytosis and anemia with a hemoglobin of 9, electrolytes unremarkable, liver function tests revealed transaminitis and hyperbilirubinemia, total CK normal, troponin negative, urine analysis is pending Patient's infectious symptoms have not stabilized and the patient is at risk of rapid decompensation. The patient will be admitted for careful hydration, antibiotic therapy, and infectious source control. SEVERE SEPSIS CRITERIA: Infectious source: Unknown End organ damage indicated by: None SEPSIS MANAGEMENT Time of recognition of sepsis: Upon arrival. Time of recognition of severe sepsis: No severe sepsis at this time. Time of recognition of septic shock: No septic shock at this time. 3 HOUR BUNDLE Blood cultures x 2 before broad-spectrum antibiotics: Yes 30 ml/kg NS bolus completed Initial lactate low Repeat lactate low SEPTIC SHOCK ASSESSMENT: No lactic acid > 4.0 No persistent hypotension (SBP < 90 or 40 mmHg drop, MAP < 65) despite 30 mL/kg IV fluid bolus VOLUME REASSESSMENT FOR SEPTIC SHOCK: Reevaluation Time: 2340 Temp 98.6 degrees, pulse 85 bpm, BP 127/84, respiratory rate 18 breaths/min, oxygen saturation 100% Heart regular rate & rhythm Lungs no crackles Skin warm & dry Cap Refill less than 2 seconds Peripheral pulses radially present PERSISTENT HYPOTENSION TREATMENT: Comfort care no Central line not Required Vasopressor started not required I considered further perfusion assessment with CVP measurement, SCVO2, bedside ultrasound volume assessment, passive leg raise, trial of further fluid bolus. And proceeded with 30 ml/kg fluid bolus of NSS, broad spectrum antibiotics, and admission. CRITICAL CARE: Critical care time 35 minutes, this was time separate from other billable procedures. Emergent fluid management while maintaining close respiratory support. Provision of immediate and broad-spectrum antibiotic therapy. Simultaneous assessment for possible sources in order to direct targeted therapy. Consideration for invasive and chemical support to prevent cardiopulmonary collapse. Critical care time is independent of procedures performed. Accepting Care Team: Current data and ongoing care discussed. Time: Time of admission Primary Provider: Hospitalist Consulting: Infectious disease Outstanding Data: none Departure Diagnosis: Primary Impression: SIRS (systemic inflammatory response syndrome) Additional Impressions: Sickle cell disease with crisis Hyperbilirubinemia Transaminitis Condition: Fair AGUILAR HUNG MD Oct 10, 2018 21:45
[2018-10-10] MEDS ORDERED: IBUPROFEN 600 MG TAB PO ONE (22:00)
[2018-10-10] MEDS ORDERED: CEFTRIAXONE 1 GM/50 ML (PMX) 50 ML IVPB ONE (22:00)
--- NOTE | 2018-10-10 23:21 | HP ---
Date/Time of Note Date/Time of Note DATE: 10/10/18 TIME: 23:21 Assessment/Plan VTE Prophylaxis SCD applied (from Nsg): Yes Pharmacological prophylaxis: NA/contraindicated Pharm contraindication: low risk/ambulating Lines/Catheters IV Catheter Type (from Nrsg): Saline Lock Assessment/Plan Assessment/Plan 1. Sickle cell crisis -Pain meds and IV fluid -Hemoglobin 9, no need to transfuse now 2. SIRS with fever and leukocytosis: No clear source of infection at this time -Chest x-ray without acute findings. -Check UA, urine culture and blood culture 3. Elevated transaminases and hyperbilirubinemia: This has been worsening -This could be related to sickle cell, however will obtain RUQ ultrasound and check hep panel Result Diagram: 10/10/18214810/10/182148 Results 24hrs Laboratory Tests Test 10/10/18 21:48 10/10/18 21:49 POC Venous Lactate 0.9 White Blood Count 15.4 H Red Blood Count 2.59 L Hemoglobin 9.0 L Hematocrit 25.1 L Mean Corpuscular Volume 96.9 Mean Corpuscular Hemoglobin 34.7 H Mean Corpuscular Hemoglobin Concent 35.9 Red Cell Distribution Width 16.6 H Platelet Count 415 # Mean Platelet Volume 11.1 H Immature Granulocytes % 0.700 H Neutrophils % Segmented Neutrophils % (Manual) 71 Band Neutrophils % (Manual) 11 H Lymphocytes % Lymphocytes % (Manual) 11 L Reactive Lymphocytes % (Manual) 1 H Monocytes % Monocytes % (Manual) 6 Eosinophils % Basophils % Nucleated Red Blood Cells % 6 H Immature Granulocytes # 0.110 H Neutrophils # Neutrophils # (Manual) 11.2 H Band Neutrophils # 1.6 H Lymphocytes (Manual) 1.6 Lymphocytes # Reactive Lymphocytes # 0.1 H Monocytes # Monocytes # (Manual) 0.9 Eosinophils # Basophils # Nucleated Red Blood Cells # Platelet Estimate NORMAL Polychromasia 2+ Poikilocytosis 1+ Anisocytosis 3+ Macrocytosis 3+ Sickle Cells 1+ Target Cells 3+ Erythrocyte Sedimentation Rate 72 H Absolute Reticulocyte Count 0.370 H Percent Reticulocyte Count 14.2 H Prothrombin Time 13.6 Prothrombin Time Ratio 1.1 INR International Normalized Ratio 1.03 Activated Partial Thromboplast Time 28.3 Sodium Level 141 Potassium Level 3.8 Chloride Level 106 Carbon Dioxide Level 23 Anion Gap 12 Blood Urea Nitrogen 10 Creatinine 0.49 L Est Glomerular Filtrat Rate mL/min > 60 Glucose Level 97 Calcium Level 10.3 H Total Bilirubin 7.9 H Direct Bilirubin 2.40 H Indirect Bilirubin 5.5 H Aspartate Amino Transf (AST/SGOT) 175 H Alanine Aminotransferase (ALT/SGPT) 151 H Alkaline Phosphatase 320 H Creatine Kinase 41 Troponin I < 0.012 C-Reactive Protein 6.5 H Total Protein 9.8 H Albumin 4.8 Globulin 5.00 H Albumin/Globulin Ratio 0.96 Lipase 25 HPI/ROS Admit Date/Time Admit Date/Time Hx of Present Illness This is a 23-year-old male with a history of sickle cell who presents the ER complaining of generalized body ache and including upper and lower extremities as well as fever. Patient has been admitted here multiple times for sickle cell crisis, last admission being in July of this year. He visited ER 3 times since. Last ER visit was 3 days ago. He was treated with IV fluid and pain medications. Now he is coming back with similar symptoms. When he presented to ER, he was febrile with temperature of 101. WBC 15,000, hemoglobin 9. His liver enzymes including bilirubin has been worsening. PMH/Family/Social Past Medical History Medical History: other (See HPI) Coded Allergies: No Known Allergy (Unverified , 10/10/18) Past Surgical History Past Surgical Hx: other (See HPI) Family History Significant Family History: no pertinent family hx Social History Alcohol Use: occasionally Smoking Status: Never smoker Drug Use: none Exam/Review of Systems Vital Signs Vitals Vital Signs Date Temp Pulse Resp B/P (MAP) Pulse Ox O2 O2 Flow FiO2 Time Delivery Rate 10/10/18 98.1 85 20 127/74 95 Room Air 22:01 (91) Exam Constitutional: alert, oriented, well developed Head: normocephalic, atraumatic Eyes: EOMI, PERRL Respiratory: clear to auscultation, normal air movement Cardiovascular: regular rate and rhythm Gastrointestinal: soft Musculoskeletal: other (Tenderness) Extremities: tenderness ALCIDES ORTEGA MD Oct 10, 2018 23:21
[2018-10-10] MEDS ORDERED: DIPH25CA42 PO (23:26)
[2018-10-10] MEDS ORDERED: ESCI10TA48 PO (23:26)
[2018-10-10] MEDS ORDERED: ALBUTEROL/IPRATROPIUM (NEB) 3 ML AMP HHN PRN (23:30)
[2018-10-10] MEDS ORDERED: HYDROCODONE/APAP (5/325) TAB PO PRN ×2 (23:30)
[2018-10-10] MEDS ORDERED: ACETAMINOPHEN 325 MG TAB PO PRN (23:30)
[2018-10-10] MEDS ORDERED: NACL 0.9% 3 ML SYG IV SCH (23:30)
[2018-10-10] MEDS ORDERED: ONDANSETRON 4 MG INJ IV PRN (23:30)
[2018-10-11 01:50] VITALS: BP 118/67; PULSE 69; RESP 17
[2018-10-11] MEDS: SOD CHLORIDE 0.9% 1,000 ML IV SCH ×3 (03:48→19:16)
[2018-10-11 08:22] VITALS: BP 96/51; PULSE 61; RESP 18
[2018-10-11] MEDS ORDERED: FOLIC ACID 1 MG TAB PO SCH (09:00)
[2018-10-11] MEDS ORDERED: CEFTRIAXONE 1 GM/50 ML (PMX) 50 ML IVPB SCH (09:00)
[2018-10-11] MEDS ORDERED: HYDROXYUREA 500 MG CAP PO SCH ×2 (09:00→13:30)
--- NOTE | 2018-10-11 12:15 | PN ---
Date/Time of Note Date/Time of Note DATE: 10/11/18 TIME: 12:14 Assessment/Plan VTE Prophylaxis Risk score (from Nsg)>0 risk: 0 SCD applied (from Nsg): Yes Pharmacological prophylaxis: LMWH Lines/Catheters IV Catheter Type (from Nrs): Peripheral IV Urinary Cath still in place: No Assessment/Plan Hospital Course SUBJECTIVE: Patient complaining of generalized pain. No chest pain, palp itation, breathing difficulties, chills or fevers. OBJECTIVE: Vital signs-see below PHYSICAL EXAM: Constitutional: Well-developed, well-nourished, not in acute distress. HEENT: Head atraumatic and normocephalic. Eyes: Extraocular muscles intact. +Icteric sclerae. Pupils equal bilaterally, reactive to light. NECK: Supple without lymph node. CHEST: Clear and good breath sounds equally. No wheezing. No rhonchi. HEART: S1, S2. Regular rate and rhythm. ABDOMEN: Soft, nontender. Bowel sounds were present. EXTREMITIES: Full range of motion in all the extremities. No cyanosis, clubbing or edema. NEUROLOGIC: Alert and oriented x3. No focal deficit. No sensory deficit. PSYCHOSOCIAL: In a good mood. No signs of depression. INTEGUMENTARY: Moist mucous membranes. Good skin turgor, intact. ASSESSMENT AND PLAN:23 yo man with sickle cell disease presents with crisis. 1.Sickle cell crisis - Diffuse bone pain and leukocytosis, dehydration. - Likely precipitated by dehydration/possible uti - Pain control: PO and IV Dilaudid as needed. Benadryl for itching. - IV fluids 2.Anemia -HH dropped 7.0/19.9-pt refused transfusion -No acute chest pain or coronary syndrome for need for immediate transfusion as such we will continue monitor H&H 3. Chronic transaminase elevation with hyperbilirubinemia secondary to sickle cell disease. -Abdominal exam benign. Continue to monitor. 4. SIRS, questionable UTI versus reactive to sickle cell crisis. -Obtain UA and culture. -Continue Rocephin. DVT: lovenox GI: none Disposition: Patient request discharge tonight as he has an appointment with his sickle cell doctor in the morning at 9:00. As such I have instructed nursing staff that patient may get discharged if he is feeling better per his request. Patient was seen in collaboration with Dr. Tao. Result Diagram: 10/11/18 0438 10/11/18 0438 Results 24hrs Laboratory Tests Test 10/10/18 21:48 10/10/18 21:49 10/11/18 04:38 POC Venous Lactate 0.9 White Blood Count 15.4 H 12.5 H Red Blood Count 2.59 L 2.03 #L Hemoglobin 9.0 L 7.0 #L Hematocrit 25.1 L 19.9 #L Mean Corpuscular Volume 96.9 98.0 Mean Corpuscular Hemoglobin 34.7 H 34.5 H Mean Corpuscular Hemoglobin Concent 35.9 35.2 Red Cell Distribution Width 16.6 H 15.9 H Platelet Count 415 # 337 Mean Platelet Volume 11.1 H 10.7 H Immature Granulocytes % 0.700 H 0.600 H Neutrophils % Segmented Neutrophils % (Manual) 71 62 Band Neutrophils % (Manual) 11 H 4 Lymphocytes % Lymphocytes % (Manual) 11 L 28 Reactive Lymphocytes % (Manual) 1 H Monocytes % Monocytes % (Manual) 6 5 Eosinophils % Basophils % Nucleated Red Blood Cells % 6 H 7 H Immature Granulocytes # 0.110 H 0.070 H Neutrophils # Neutrophils # (Manual) 11.2 H 7.8 H Band Neutrophils # 1.6 H 0.5 Lymphocytes (Manual) 1.6 3.5 H Lymphocytes # Reactive Lymphocytes # 0.1 H Monocytes # Monocytes # (Manual) 0.9 0.6 Eosinophils # Basophils # Nucleated Red Blood Cells # Platelet Estimate NORMAL NORMAL Polychromasia 2+ 2+ Poikilocytosis 1+ 1+ Anisocytosis 3+ 3+ Macrocytosis 3+ 2+ Sickle Cells 1+ 2+ Target Cells 3+ 2+ Erythrocyte Sedimentation Rate 72 H Absolute Reticulocyte Count 0.370 H Percent Reticulocyte Count 14.2 H Prothrombin Time 13.6 Prothrombin Time Ratio 1.1 INR International Normalized Ratio 1.03 Activated Partial Thromboplast Time 28.3 Sodium Level 141 141 Potassium Level 3.8 3.7 Chloride Level 106 107 Carbon Dioxide Level 23 24 Anion Gap 12 10 Blood Urea Nitrogen 10 8 Creatinine 0.49 L 0.44 L Est Glomerular Filtrat Rate mL/min > 60 > 60 Glucose Level 97 116 Calcium Level 10.3 H 9.5 Total Bilirubin 7.9 H 7.0 H Direct Bilirubin 2.40 H 2.30 H Indirect Bilirubin 5.5 H 4.7 H Aspartate Amino Transf (AST/SGOT) 175 H 140 H Alanine Aminotransferase (ALT/SGPT) 151 H 128 H Alkaline Phosphatase 320 H 229 H Creatine Kinase 41 Troponin I < 0.012 C-Reactive Protein 6.5 H Total Protein 9.8 H 8.0 # Albumin 4.8 3.9 Globulin 5.00 H 4.10 H Albumin/Globulin Ratio 0.96 0.95 Lipase 25 Eosinophils % (Manual) 1 Giant Platelets 3 H Microcytosis 1+ Phosphorus Level 4.0 Magnesium Level 2.1 Triglycerides Level 65 Cholesterol Level 118 LDL Cholesterol, Calculated 67 HDL Cholesterol 38 Cholesterol/HDL Ratio 3.1 Exam/Review of Systems Exam Vitals Vital Signs Date Temp Pulse Resp B/P (MAP) Pulse Ox O2 O2 Flow FiO2 Time Delivery Rate 10/11/18 97.7 61 18 96/51 (66) 97 08:22 10/11/18 Room Air 01:50 Intake and Output 10/10/18 10/10/18 10/11/18 1515:00 23:00 07:00 IntakeIntake Total 50 ml 640 ml BalanceBalance 50 ml 640 ml Results Results 24hrs Laboratory Tests Test 10/10/18 21:48 10/10/18 21:49 10/11/18 04:38 POC Venous Lactate 0.9 White Blood Count 15.4 H 12.5 H Red Blood Count 2.59 L 2.03 #L Hemoglobin 9.0 L 7.0 #L Hematocrit 25.1 L 19.9 #L Mean Corpuscular Volume 96.9 98.0 Mean Corpuscular Hemoglobin 34.7 H 34.5 H Mean Corpuscular Hemoglobin Concent 35.9 35.2 Red Cell Distribution Width 16.6 H 15.9 H Platelet Count 415 # 337 Mean Platelet Volume 11.1 H 10.7 H Immature Granulocytes % 0.700 H 0.600 H Neutrophils % Segmented Neutrophils % (Manual) 71 62 Band Neutrophils % (Manual) 11 H 4 Lymphocytes % Lymphocytes % (Manual) 11 L 28 Reactive Lymphocytes % (Manual) 1 H Monocytes % Monocytes % (Manual) 6 5 Eosinophils % Basophils % Nucleated Red Blood Cells % 6 H 7 H Immature Granulocytes # 0.110 H 0.070 H Neutrophils # Neutrophils # (Manual) 11.2 H 7.8 H Band Neutrophils # 1.6 H 0.5 Lymphocytes (Manual) 1.6 3.5 H Lymphocytes # Reactive Lymphocytes # 0.1 H Monocytes # Monocytes # (Manual) 0.9 0.6 Eosinophils # Basophils # Nucleated Red Blood Cells # Platelet Estimate NORMAL NORMAL Polychromasia 2+ 2+ Poikilocytosis 1+ 1+ Anisocytosis 3+ 3+ Macrocytosis 3+ 2+ Sickle Cells 1+ 2+ Target Cells 3+ 2+ Erythrocyte Sedimentation Rate 72 H Absolute Reticulocyte Count 0.370 H Percent Reticulocyte Count 14.2 H Prothrombin Time 13.6 Prothrombin Time Ratio 1.1 INR International Normalized Ratio 1.03 Activated Partial Thromboplast Time 28.3 Sodium Level 141 141 Potassium Level 3.8 3.7 Chloride Level 106 107 Carbon Dioxide Level 23 24 Anion Gap 12 10 Blood Urea Nitrogen 10 8 Creatinine 0.49 L 0.44 L Est Glomerular Filtrat Rate mL/min > 60 > 60 Glucose Level 97 116 Calcium Level 10.3 H 9.5 Total Bilirubin 7.9 H 7.0 H Direct Bilirubin 2.40 H 2.30 H Indirect Bilirubin 5.5 H 4.7 H Aspartate Amino Transf (AST/SGOT) 175 H 140 H Alanine Aminotransferase (ALT/SGPT) 151 H 128 H Alkaline Phosphatase 320 H 229 H Creatine Kinase 41 Troponin I < 0.012 C-Reactive Protein 6.5 H Total Protein 9.8 H 8.0 # Albumin 4.8 3.9 Globulin 5.00 H 4.10 H Albumin/Globulin Ratio 0.96 0.95 Lipase 25 Eosinophils % (Manual) 1 Giant Platelets 3 H Microcytosis 1+ Phosphorus Level 4.0 Magnesium Level 2.1 Triglycerides Level 65 Cholesterol Level 118 LDL Cholesterol, Calculated 67 HDL Cholesterol 38 Cholesterol/HDL Ratio 3.1 Medications Medication Current Medications Sodium Chloride 1,000 ml @ 100 mls/hr Q10H IV Last administered on 10/11/18at 03:48; Admin Dose 100 MLS/HR; Start 10/10/18 at 23:16 IV Flush (NS 3 ml) 3 ml PER PROTOCOL IV ; Start 10/10/18 at 23:30 Ondansetron HCl (Zofran Inj) 4 mg Q6H PRN IV NAUSEA/VOMITING; Start 10/10/18 at 23:30 Acetaminophen (Tylenol Tab) 650 mg Q6H PRN PO .PAIN 1-3 OR TEMP; Start 10/10/18 at 23:30 Acetaminophen/ Hydrocodone Bitart ([place] (5/325)) 1 tab Q6H PRN PO .MOD PAIN 4- 6; Start 10/10/18 at 23:30 Acetaminophen/ Hydrocodone Bitart ([place] (5/325)) 2 tab Q6H PRN PO .SEVERE PAIN 7-10 Last administered on 10/11/18at 07:27; Admin Dose 2 TAB; Start 10/10/18 at 23:30 Albuterol/ Ipratropium (Duoneb) 3 ml Q2H RESP THERAPY PRN HHN SHORTNESS OF BREATH; Start 10/10/18 at 23:30 Diphenhydramine HCl (Benadryl) 25 mg Q6 PRN PO ITCHING/RASH; Start 10/10/18 at 23:30 Folic Acid (Folic Acid) 1 mg DAILY PO Last administered on 10/11/18at 08:52; Admin Dose 1 MG; Start 10/11/18 at 09:00 Hydroxyurea (Hydrea) 500 mg DAILY PO ; Start 10/11/18 at 09:00 Ceftriaxone Sodium 50 ml @ 100 mls/hr DAILY IVPB Last administered on 10/11/18at 08:53; Admin Dose 100 MLS/HR; Start 10/11/18 at 09:00 CRISTINA VELASCO NP Oct 11, 2018 12:15
[2018-10-11] MEDS: HYDROmorphONE 2 MG/ML SYG IV PRN ×3 (12:16→20:21)
--- NOTE | 2018-10-11 12:16 | PDOCDIS ---
Discharge Instructions CONDITION [id number] Patient Condition: [id number] Stable HOME CARE INSTRUCTIONS: [id number] Diet Instructions: [id number] Regular FOLLOW UP/APPOINTMENTS Follow-up Plan Follow-up with outpatient pain management/sickle cell CRISTINA Ndiaye NP Oct 11, 2018 12:16
[2018-10-11] MEDS ORDERED: LEVO500T10 PO (12:17)
--- NOTE | 2018-10-11 12:22 | DS ---
Date/Time of Note Date/Time of Note DATE: 10/11/18 TIME: 12:21 Discharge Summary Admission/Discharge Info Admit Date/Time Oct 11, 2018 at 02:18 Discharge Date/Time Discharge Diagnosis 1.Sickle cell crisis 2.Anemia 3. Chronic transaminase elevation with hyperbilirubinemia secondary to sickle cell disease/ALCOHOL USE. 4. SIRS,Likely questionable UTI versus reactive to sickle cell crisis.improved 5.Alcohol use 6.Presumed UTI Patient Condition: Stable Hospital Course 23 yo man with sickle cell disease,alcohol abuse presents with crisis. Patient was hydrated systemically. He was given IV Dilaudid for pain control. Patient did not have any chest pain or other syndromes. Patient's hemoglobin dropped to 7.0 likely dilutional effect versus secondary to crisis. Patient refused blood transfusion at present. He wanted to be discharged today. At thi s time, I have instructed nursing staff to repeat his hemoglobin and if it stays 7 or above with no chest pain or other syndrome, he may be discharged with outpatient follow-up. I will also give him a Levaquin prescription for 5 days in light of patient's reported dysuria and urinary urgency along with his fevers and leukocytosis. Patient's UA and urine culture has been ordered, although this is more likely going to be nondiagnostic as patient already received couple doses of antibiotics. In the event that if the hemoglobin goes below 7.0, patient will not be officially discharged as he may need to be transfused prior to discharge. Already has an appointment with his sickle cell doctor tomorrow at 9 AM. Approximately 60 minutes was spent on this discharge. Patient was seen in collaboration with Dr. Tao. Home Meds Active Scripts Levofloxacin* (Levofloxacin*) 500 Mg Tablet, 500 MG PO DAILY, #5 TAB Prov:CRISTINA VELASCO V. INFORMATION TECHNOLOGY ADMINISTRATOR 10/11/18 Diphenhydramine Hcl* (Benadryl*) 25 Mg Cap, 25 MG PO Q6 PRN for ITCHING/RASH, #30 TAB Prov:CON COPELAND DO 10/07/18 Reported Medications Escitalopram Oxalate* (Escitalopram Oxalate*) 10 Mg Tablet, 10 MG PO DAILY for 30 Days, #30 10/10/18 Diphenhydramine Hcl (Banophen) 25 Mg Capsule, 25 MG PO, #30 10/10/18 Hydroxyurea* (Hydroxyurea*) 500 Mg Capsule, 1500 MG PO DAILY, CAP 10/07/18 Folic Acid* (Folic Acid*) 1 Mg Tablet, 1 MG PO DAILY, TAB 06/30/18 Discontinued Reported Medications Hydromorphone Hcl (Dilaudid) 4 Mg Tab, 4 MG PO PRN for PAIN LEVEL 4-6 07/13/18 Hydroxyurea* (Hydroxyurea*) 500 Mg Capsule, 1500 MG PO BID, CAP 06/30/18 Discontinued Scripts Ondansetron (Ondansetron Odt) 4 Mg Tab.rapdis, 4 MG PO Q6H PRN for NAUSEA AND/OR VOMITING, #10 TAB Prov:CON COPELAND DO 10/07/18 Ibuprofen* (Motrin*) 400 Mg Tab, 400 MG PO Q8, #15 TAB Prov:PAIGE GALDAMEZ MD 08/05/18 Triamcinolone Acetonide (Triamcinolone Acetonide) 0.5% - 15 Gm Oint..gm., 1 APPLIC TOP BID for 7 Days, #1 TUB Prov:PAIGE GALDAMEZ MD 08/05/18 Follow-up Plan Follow-up with outpatient pain management/sickle cell DrSandro Primary Care Provider Care Physician No Primary Pending Labs Laboratory Tests Test 10/10/18 21:48 10/10/18 21:49 10/11/18 04:38 POC Venous Lactate 0.9 mmol/L (0.5-2.0) White Blood Count 15.4 12.5 10^3/ul (4.8-10.8) 10^3/ul (4.8-10.8) Red Blood Count 2.59 2.03 10^6/ul (4.70-6.10 10^6/ul (4.70-6.10 ) ) Hemoglobin 9.0 7.0 g/dl (14.0-18.0) g/dl (14.0-18.0) Hematocrit 25.1 % (42.0-52.0) 19.9 % (42.0-52.0) Mean Corpuscular 96.9 98.0 Volume fl (82.0-101.0) fl (82.0-101.0) Mean Corpuscular 34.7 34.5 Hemoglobin pg (29.0-33.0) pg (29.0-33.0) Mean Corpuscular 35.9 35.2 Hemoglobin Concent g/dl (32.0-37.0) g/dl (32.0-37.0) Red Cell 16.6 % (11.5-14.5) 15.9 % (11.5-14.5) Distribution Width Platelet Count 415 337 10^3/UL (140-415) 10^3/UL (140-415) Mean Platelet 11.1 fl (7.4-10.4) 10.7 fl (7.4-10.4) Volume Immature 0.700 0.600 Granulocytes % % (0.001-0.429) % (0.001-0.429) Neutrophils % % (39.0-77.0) % (39.0-77.0) Segmented 71 % (39-77) 62 % (39-77) Neutrophils % (Manual) Band Neutrophils % 11 % (0-4) 4 % (0-4) (Manual) Lymphocytes % % (15.0-51.0) % (15.0-51.0) Lymphocytes % 11 % (15-51) 28 % (15-51) (Manual) Reactive 1 % (0-0) Lymphocytes % (Manual) Monocytes % % (0.0-11.0) % (0.0-11.0) Monocytes % 6 % (0-11) 5 % (0-11) (Manual) Eosinophils % % (0.0-7.0) % (0.0-7.0) Basophils % % (0.0-2.0) % (0.0-2.0) Nucleated Red Blood 6 % (0-0) 7 % (0-0) Cells % Immature 0.110 0.070 Granulocytes # 10^3/ul (0.0-0.031 10^3/ul (0.0-0.031 ) ) Neutrophils # 10^3/ul (1.6-7.5) 10^3/ul (1.6-7.5) Neutrophils # 11.2 7.8 (Manual) 10^3/ul (1.6-7.5) 10^3/ul (1.6-7.5) Band Neutrophils # 1.6 0.5 10^3/ul (0.0-0.6) 10^3/ul (0.0-0.6) Lymphocytes 1.6 3.5 (Manual) 10^3/ul (0.8-2.9) 10^3/ul (0.8-2.9) Lymphocytes # 10^3/ul (0.8-2.9) 10^3/ul (0.8-2.9) Reactive 0.1 Lymphocytes # 10^3/ul (0.0-0.0) Monocytes # 10^3/ul (0.3-0.9) 10^3/ul (0.3-0.9) Monocytes # 0.9 0.6 (Manual) 10^3/ul (0.3-0.9) 10^3/ul (0.3-0.9) Eosinophils # 10^3/ul (0.0-0.5) 10^3/ul (0.0-0.5) Basophils # 10^3/ul (0.0-0.1) 10^3/ul (0.0-0.1) Nucleated Red Blood 10^3/ul (0.0-0.0) 10^3/ul (0.0-0.0) Cells # Platelet Estimate NORMAL NORMAL Polychromasia 2+ (0-0) 2+ (0-0) Poikilocytosis 1+ (0-0) 1+ (0-0) Anisocytosis 3+ (0-0) 3+ (0-0) Macrocytosis 3+ (0-0) 2+ (0-0) Sickle Cells 1+ (0-0) 2+ (0-0) Target Cells 3+ (0-0) 2+ (0-0) Erythrocyte 72 mm/Hr (0-15) Sedimentation Rate Absolute 0.370 Reticulocyte Count X10^6 (0.020-0.110 ) Percent 14.2 % (0.5-1.5) Reticulocyte Count Prothrombin Time 13.6 Sec (11.9-14.9) Prothrombin Time 1.1 Ratio INR International 1.03 Normalized Ratio Activated 28.3 Partial Thromboplas Sec (23.0-35.0) t Time Sodium Level 141 141 mmol/L (135-144) mmol/L (135-144) Potassium Level 3.8 3.7 mmol/L (3.5-5.1) mmol/L (3.5-5.1) Chloride Level 106 107 mmol/L (97-110) mmol/L (97-110) Carbon Dioxide 23 mmol/L (21-31) 24 mmol/L (21-31) Level Anion Gap 12 (5-13) 10 (5-13) Blood Urea 10 mg/dl (7-20) 8 mg/dl (7-20) Nitrogen Creatinine 0.49 0.44 mg/dl (0.61-1.24) mg/dl (0.61-1.24) Est Glomerular > 60 mL/min (>60) > 60 mL/min (>60) Filtrat Rate mL/min Glucose Level 97 mg/dl (70-220) 116 mg/dl (70-220) Calcium Level 10.3 9.5 mg/dl (8.4-10.2) mg/dl (8.4-10.2) Total Bilirubin 7.9 7.0 mg/dl (0.2-1.3) mg/dl (0.2-1.3) Direct Bilirubin 2.40 2.30 mg/dl (0.00-0.20) mg/dl (0.00-0.20) Indirect Bilirubin 5.5 mg/dl (0-1.1) 4.7 mg/dl (0-1.1) Aspartate Amino 175 IU/L (15-46) 140 IU/L (15-46) Transf (AST/SGOT) Alanine 151 IU/L (13-69) 128 IU/L (13-69) Aminotransferase (A LT/SGPT) Alkaline 320 IU/L (42-121) 229 IU/L (42-121) Phosphatase Creatine Kinase 41 IU/L (23-200) Troponin I < 0.012 ng/ml (0.000-0.120 ) C-Reactive Protein 6.5 mg/dl (0.0-0.9) Total Protein 9.8 g/dl (6.1-8.1) 8.0 g/dl (6.1-8.1) Albumin 4.8 g/dl (3.3-4.9) 3.9 g/dl (3.3-4.9) Globulin 5.00 4.10 g/dl (1.3-3.2) g/dl (1.3-3.2) Albumin/Globulin 0.96 0.95 Ratio Lipase 25 U/L (23-300) Eosinophils % 1 % (0-7) (Manual) Giant Platelets 3 % (0-0) Microcytosis 1+ (0-0) Phosphorus Level 4.0 mg/dl (2.5-4.9) Magnesium Level 2.1 mg/dl (1.7-2.5) Triglycerides 65 mg/dl (0-149) Level Cholesterol Level 118 mg/dl (100-200) LDL Cholesterol, 67 mg/dl Calculated HDL Cholesterol 38 mg/dl (30-63) Cholesterol/HDL 3.1 RATIO Ratio Microbiology Date/Time Source Procedure Growth Status 10/10/18 22:13 Nasopharyngeal Influenza Types A,B Direct EIA - Final Complete CRISTINA VELASCO V. INFORMATION TECHNOLOGY ADMINISTRATOR Oct 11, 2018 12:22
[2018-10-11] MEDS ORDERED: ENOXAPARIN 40 MG/0.4 ML SYG SC SCH (13:00)
[2018-10-11] MEDS: DIPHENHYDRAMINE 25 MG CAP PO PRN ×2 (13:46→20:23)
[2018-10-11 14:08] VITALS: BP 112/69; PULSE 58; RESP 18
[2018-10-11 20:30] VITALS: BP 118/75; PULSE 73; RESP 18
[2018-10-12] MEDS: HYDROmorphONE 2 MG/ML SYG IV PRN ×2 (00:24→04:16)
[2018-10-12] MEDS: SOD CHLORIDE 0.9% 1,000 ML IV SCH (00:27)
[2018-10-12 01:26] VITALS: BP 120/80; PULSE 81; RESP 18
[2018-10-12] MEDS: DIPHENHYDRAMINE 25 MG CAP PO PRN (01:47)
[2018-10-12] MEDS ORDERED: HYDROXYUREA 500 MG CAP PO SCH (09:00)
--- NOTE | 2018-10-12 11:10 | DS ---
Date/Time of Note Date/Time of Note DATE: 10/12/18 TIME: 11:08 Discharge Summary Admission/Discharge Info Admit Date/Time Oct 11, 2018 at 02:18 Discharge Date/Time Oct 12, 2018 at 06:37 Discharge Diagnosis 1.Sickle cell crisis 2.Anemia 3. Chronic transaminase elevation with hyperbilirubinemia secondary to sickle cell disease/ALCOHOL USE. 4. SIRS,Likely questionable UTI versus reactive to sickle cell crisis.improved 5.Alcohol use 6.Presumed UTI Hospital Course 23 yo man with sickle cell disease, depression, alcohol abuse presents with crisis. Patient was hydrated systemically. He was given IV Dilaudid for pain control. Patient did not have any chest pain or other syndromes. Patient's hemoglobin dropped to 7.0 likely dilutional effect versus secondary to crisis. Patient also declined blood transfusion . His hemoglobin was repeated and remained stable above 7.0, as such it is reasonable to hold off transfusion at present. Patient with no further pain. He requested discharge as he has appointment with his sickle cell doctor at 9:00 today. Patient was discharged in stable condition. For presumed UTI, he was given 5 days of Levaquin. Urine culture negative, but patient was given antibiotic prior to obtaining cultures. Approximately 60 minutes was spent on this discharge. Patient was seen in collaboration with Dr. Tao. Home Meds Active Scripts Levofloxacin* (Levofloxacin*) 500 Mg Tablet, 500 MG PO DAILY, #5 TAB Prov:CRISTINA VELASCO V. DATA ENTRY TECHNICIAN 10/11/18 Diphenhydramine Hcl* (Benadryl*) 25 Mg Cap, 25 MG PO Q6 PRN for ITCHING/RASH, #30 TAB Prov:CON COPELAND DO 10/07/18 Reported Medications Escitalopram Oxalate* (Escitalopram Oxalate*) 10 Mg Tablet, 10 MG PO DAILY for 30 Days, #30 10/10/18 Diphenhydramine Hcl (Banophen) 25 Mg Capsule, 25 MG PO, #30 10/10/18 Hydroxyurea* (Hydroxyurea*) 500 Mg Capsule, 1500 MG PO DAILY, CAP 10/07/18 Folic Acid* (Folic Acid*) 1 Mg Tablet, 1 MG PO DAILY, TAB 06/30/18 Discontinued Reported Medications Hydromorphone Hcl (Dilaudid) 4 Mg Tab, 4 MG PO PRN for PAIN LEVEL 4-6 07/13/18 Hydroxyurea* (Hydroxyurea*) 500 Mg Capsule, 1500 MG PO BID, CAP 06/30/18 Discontinued Scripts Ondansetron (Ondansetron Odt) 4 Mg Tab.rapdis, 4 MG PO Q6H PRN for NAUSEA AND/OR VOMITING, #10 TAB Prov:CON COPELAND DO 10/07/18 Ibuprofen* (Motrin*) 400 Mg Tab, 400 MG PO Q8, #15 TAB Prov:PAIGE GALDAMEZ MD 08/05/18 Triamcinolone Acetonide (Triamcinolone Acetonide) 0.5% - 15 Gm Oint..gm., 1 APPLIC TOP BID for 7 Days, #1 TUB Prov:PAIGE GALDAMEZ MD 08/05/18 Follow-up Plan Follow-up with outpatient pain management/sickle cell DrSandro Primary Care Provider Care Physician No Primary Pending Labs Laboratory Tests Test 10/11/18 12:05 10/11/18 16:08 10/12/18 04:44 Urine Color SHAHIDA (YELLOW) Urine Clarity CLEAR (CLEAR) Urine pH 7.0 (5.0-9.0) Urine Specific 1.011 (1.003-1.030) [place] Urine Ketones NEGATIVE mg/dL (NEGATIVE) Urine Nitrite NEGATIVE mg/dL (NEGATIVE) Urine Bilirubin 1+ mg/dL (NEGATIVE) Urine Urobilinogen 2+ mg/dL (NEGATIVE) Urine Leukocyte NEGATIVE Hai/ul Esterase Urine Hemoglobin NEGATIVE mg/dL (NEGATIVE) Urine Glucose NEGATIVE mg/dL (NEGATIVE) Urine Total NEGATIVE Protein mg/dl (NEGATIVE) Hemoglobin 7.4 7.4 g/dl (14.0-18.0) g/dl (14.0-18.0) Hematocrit 20.2 % (42.0-52.0) 21.3 % (42.0-52.0) White Blood Count 12.2 10^3/ul (4.8-10.8) Red Blood Count 2.20 10^6/ul (4.70-6.10 ) Mean Corpuscular 96.8 Volume fl (82.0-101.0) Mean Corpuscular 33.6 Hemoglobin pg (29.0-33.0) Mean Corpuscular 34.7 Hemoglobin Concent g/dl (32.0-37.0) Red Cell 16.0 % (11.5-14.5) Distribution Width Platelet Count 429 10^3/UL (140-415) Mean Platelet 10.3 fl (7.4-10.4) Volume Immature 0.500 Granulocytes % % (0.001-0.429) Neutrophils % 46.0 % (39.0-77.0) Lymphocytes % 40.4 % (15.0-51.0) Monocytes % 10.8 % (0.0-11.0) Eosinophils % 1.7 % (0.0-7.0) Basophils % 0.6 % (0.0-2.0) Nucleated Red Blood 5.0 Cells % /100WBC (0.0-0.0) Immature 0.060 Granulocytes # 10^3/ul (0.0-0.031 ) Neutrophils # 5.6 10^3/ul (1.6-7.5) Lymphocytes # 4.9 10^3/ul (0.8-2.9) Monocytes # 1.3 10^3/ul (0.3-0.9) Eosinophils # 0.2 10^3/ul (0.0-0.5) Basophils # 0.1 10^3/ul (0.0-0.1) Nucleated Red Blood 0.6 Cells # 10^3/ul (0.0-0.0) Sodium Level 139 mmol/L (135-144) Potassium Level 4.3 mmol/L (3.5-5.1) Chloride Level 104 mmol/L (97-110) Carbon Dioxide 25 mmol/L (21-31) Level Anion Gap 10 (5-13) Blood Urea Nitrogen 8 mg/dl (7-20) Creatinine 0.45 mg/dl (0.61-1.24) Est Glomerular > 60 mL/min (>60) Filtrat Rate mL/min Glucose Level 87 mg/dl (70-220) Calcium Level 9.5 mg/dl (8.4-10.2) Total Bilirubin 3.0 mg/dl (0.2-1.3) Direct Bilirubin 0.20 mg/dl (0.00-0.20) Indirect Bilirubin 2.8 mg/dl (0-1.1) Aspartate Amino 114 IU/L (15-46) Transf (AST/SGOT) Alanine 136 IU/L (13-69) Aminotransferase (A LT/SGPT) Alkaline 230 IU/L (42-121) Phosphatase Total Protein 8.5 g/dl (6.1-8.1) Albumin 4.2 g/dl (3.3-4.9) Globulin 4.30 g/dl (1.3-3.2) Albumin/Globulin 0.97 Ratio Microbiology Date/Time Source Procedure Growth Status 10/11/18 12:05 Clean Catch Urine Urine Culture - Preliminary NO Resulted GROWTH AFTER 24 HOURS CRISTINA VELASCO V. DATA ENTRY TECHNICIAN Oct 12, 2018 11:10
== END 2018-10-12 06:37 | disposition home or self-care (01) | DRG 812 ==
LOC: E/R 16:44 → MS1 23:19 → OBSVTOIN 10-11 02:18
PROVIDERS: ADMIT Internal Medicine; ATTEND Internal Medicine
DX: D57.00 Hb-SS disease with crisis, unspecified (principal); R65.10 Systemic inflammatory response syndrome (SIRS) of non-infectious origin without acute organ dysfunction; N39.0 Urinary tract infection, site not specified; R74.0 Nonspecific elevation of levels of transaminase and lactic acid dehydrogenase [LDH]; E80.6 Other disorders of bilirubin metabolism; Z72.89 Other problems related to lifestyle
CPT/HCPCS: 36415; 71045; 74181; 76705; 80053; 80061; 81003; 82550; 83605; 83690; 83735; 84100; 84484; 85014; 85018; 85025; 85045; 85610; 85651; 85730; 86140; 86850; 86870; 86900; 86901; 87086; 87400; 93005; 96365; 96375; G0378; J0696; J1170; J1650; J2405; J7030